=== PATIENT | male | born 1965 | race Caucasian/White ===

== ENCOUNTER 2023-09-20 00:37 | Emergency (ER) | payer OTHER, SELFPAY ==
[2023-09-20 00:50] VITALS: BP 151/87; PULSE 78; RESP 18; TEMP 36.8; O2SAT 98; BMI 33.3
--- NOTE | 2023-09-20 01:14 | ED_ITS ---
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 Injured his left hip and thigh. Denies rib or back pain. no abdominal pain. believes he may have hit his head on something but does not have a headache or pain. did sustain minor scrape right elbow but has FROM of the elbow without pain. No nausea or vomiting . States he is able to walk but not very far because of the pain of the left hip MD complaint: Reports fall Related Data Allergies Allergy/AdvReac Type Severity Reaction Status Date / Time clopidogrel [From Plavix] Allergy Mild Verified 09/20/23 00:54 Review of Systems ROS Status of ROS 10 or more systems reviewed and unremark able except as noted in history and below PFSH PFSH Social History Smoking status: Current every day smoker Exam Constitutional Vital Signs, click to edit/add: Last Vital Signs Temp 98.2 F 09/20/23 00:50 Pulse 78 09/20/23 00:50 Resp 18 09/20/23 00:50 BP 151/87 H 09/20/23 00:50 Pulse Ox 98 09/20/23 00:50 O2 Del Method Room Air 09/20/23 00:50 Common normals: no apparent distress, average body habitus, oriented x3, no limitations, healthy appearing, alert and well nourished Eye Common normals: PERRL and EOMs intact bilaterally Neck & C-Spine Common normals: full ROM and supple Chest Common normals: inspection of chest normal and palpation of chest normal Respiratory Common normals: normal respiratory effort, no retractions, no use of accessory muscles and clear to auscultation bilaterally Cardio Common normals: regular rate, regular rhythm, S1 normal heart sound and S2 normal heart sound GI Common normals: Normal to inspection, nondistended, normoactive bowel sounds present, soft to palpation and non-tender Extremity Other: tenderness left hip and thigh Neuro Common normals: oriented x3, CN's II-XII intact bilaterally, moves all extremities and no focal motor deficits Psych Appearance: grossly normal Course Vital Signs Vital signs: Vital Signs Temperature 98.2 F 09/20/23 00:50 Pulse Rate 78 09/20/23 00:50 Respiratory Rate 18 09/20/23 00:50 Blood Pressure 151/87 H 09/20/23 00:50 Pulse Oximetry 98 09/20/23 00:50 Oxygen Delivery Method Room Air 09/20/23 00:50 Temperature 98.2 F 09/20/23 00:50 Pulse Rate 78 09/20/23 00:50 Respiratory Rate 18 09/20/23 00:50 Blood Pressure 151/87 H 09/20/23 00:50 Pulse Oximetry 98 09/20/23 00:50 Oxygen Delivery Method Room Air 09/20/23 00:50 MDM - Fall MDM Narrative Medical decision making narrative: patient presents after a fall from work. states he fell about 4 ft to the ground while climbing down from the ladder of a train. Minor injury right elbow. Main complaint of pain left hip and femur. exam with tenderness but no deformity. xrays neg. patient informed of the above and discharged home Imaging Data Abdominal x-ray: Radiologist's impression: re: XR hip RT 2V w/ pelvis PROCEDURE: XR hip RT 2V w/ pelvis HISTORY: fall COMPARISON: None. FINDINGS: BONES:No fracture, acute abnormality, or significant arthropathy. SOFT TISSUES:No visible soft tissue swelling. EFFUSION:None visible. OTHER: Negative. XR/XR hip RT 2V w/ pelvis IMPRESSION: 1. No acute bone abnormality. Discharge Plan Discharge Chief Complaint: Fall Clinical Impression: Pain of left femur, Contusion of hip, left Patient Disposition: Home, Self-Care Instructions: Contusion in Adults (ED), Hip Contusion (ED) Additional Instructions: follow up with [facility] thursday Stand Alone Forms: Portal Instructions Referrals: QUE BALDWIN [Primary Care Provider] - 1 week Discharge Date/Time: 09/20/23 02:54
--- NOTE | 2023-09-20 01:19 | XR_ITS ---
The [address] [address] Patient Name: JOHN GILLESPIE MRN: [id number] date: 1965 Sex: M Assigned Patient Location: ER Current Patient Location: ER Accession/Order Number: [id number] Exam Date: 09/20/2023 01:35 Report Date: 09/20/2023 01:54 At the request of: CEASAR MARSHALL Procedure: XR femur LT 2V PROCEDURE: XR femur LT 2V HISTORY: fall COMPARISON: None. FINDINGS: BONES:No fracture, acute abnormality, or significant arthropathy. SOFT TISSUES:No visible soft tissue swelling. EFFUSION:None visible. OTHER: Negative. XR/XR femur LT 2V IMPRESSION: 1. No acute bone abnormality. Electronically authenticated by: KARLA SAMS Date: 09/20/2023 01:54
--- NOTE | 2023-09-20 01:19 | XR_ITS ---
The [address] [address] Patient Name: JOHN GILLESPIE MRN: [id number] date: 1965 Sex: M Assigned Patient Location: ER Current Patient Location: ER Accession/Order Number: [id number] Exam Date: 09/20/2023 01:35 Report Date: 09/20/2023 01:55 At the request of: CEASAR MARSHALL Procedure: XR hip RT 2V w/ pelvis PROCEDURE: XR hip RT 2V w/ pelvis HISTORY: fall COMPARISON: None. FINDINGS: BONES:No fracture, acute abnormality, or significant arthropathy. SOFT TISSUES:No visible soft tissue swelling. EFFUSION:None visible. OTHER: Negative. XR/XR hip RT 2V w/ pelvis IMPRESSION: 1. No acute bone abnormality. Electronically authenticated by: KARLA SAMS Date: 09/20/2023 01:55
[2023-09-20] MEDS: HYDROCODONE/ACET 5-325 MG TABLET 4 TAB PO (02:35)
== END 2023-09-20 02:54 | disposition home or self-care (01) ==
PROVIDERS: Emergency Provider Internal Medicine; PCP Family Medicine
DX: S70.02XA Contusion of left hip, initial encounter (principal); M79.605 Pain in left leg; W11.XXXA Fall on and from ladder, initial encounter
CPT/HCPCS: 73502; 73552; 99284

== ENCOUNTER 2023-12-02 16:06 | Emergency (ER) | payer OTHER, SELFPAY ==
[2023-12-02] VITALS (43 sets, daily range): BP systolic 95–160; BP diastolic 69–104; PULSE 63–83; RESP 8–25; O2SAT 95–97; BMI 32.5
--- NOTE | 2023-12-02 16:17 | CT_ITS ---
The [address] [address] Patient Name: JOHN GILLESPIE MRN: [id number] date: 1965 Sex: M Assigned Patient Location: ER Current Patient Location: ER Accession/Order Number: [id number] Exam Date: 12/02/2023 16:22 Report Date: 12/02/2023 16:51 At the request of: SISSY SEALS Procedure: CT stroke head/brain wo con EXAM: CT stroke head/brain wo con HISTORY: Left-sided weakness, possible cva COMPARISON: None. TECHNIQUE: Unenhanced transaxial tomographic sections obtained from the vertex through the posterior fossa. FINDINGS: Diffuse cerebral atrophy. Mild bilateral chronic microvascular ischemic change. No midline shift, mass effect or intracranial hemorrhage are identified. The mastoid air cells and visualized paranasal sinuses are clear. CT/CT stroke head/brain wo con IMPRESSION: 1. No acute intracranial process is identified. 2. Diffuse cerebral atrophy. Mild bilateral chronic microvascular ischemic change. Electronically authenticated by: JOAQUIN VILLAVICENCIO Date: 12/02/2023 16:51
[2023-12-02 16:19] LABS: Glucometer 143 mg/dL (74-106)
--- NOTE | 2023-12-02 16:25 | ECG_ITS ---
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
--- NOTE | 2023-12-02 16:31 | XR_ITS ---
The [address] [address] Patient Name: JOHN GILLESPIE MRN: [id number] date: 1965 Sex: M Assigned Patient Location: ER Current Patient Location: ER Accession/Order Number: [id number] Exam Date: 12/02/2023 16:25 Report Date: 12/02/2023 17:10 At the request of: SISSY SEALS Procedure: XR chest 1V EXAM: XR chest 1V at 1648 hours HISTORY: cva COMPARISON: 04/25/2020 TECHNIQUE: AP upright portable chest x-ray FINDINGS: There has been interval clearing of the left lung base. No acute infiltrate, effusion or pneumothorax is identified. The heart is not enlarged and the vasculature is not distended. The osseous structures are grossly intact. XR/XR chest 1V IMPRESSION: The left lung base is now clear. There is no evidence of a focal infiltrate or cardiac decompensation at this time. Electronically authenticated by: EDD GELLER Date: 12/02/2023 17:10
--- NOTE | 2023-12-02 16:32 | ED_ITS ---
HPI - Neuro Symptoms/Deficit General Chief Complaint: Neuro Symptoms/Deficit Stated Complaint: Possible CVA Time Seen by Provider: 12/02/23 16:14 Source: patient and family Limitations: physical limitation History of Present Illness HPI Narrative: 58-year-old male presents to the emergency department for weakness in his left arm and numbness on the left side of his face which started at 9:00 this morning, over 7 hours ago. It has been continuous. He does not complain of a headache. He does not have any symptoms in his right arm or his legs. He had a stroke years ago which affected his balance. No fever vomiting or chest pain. Related Data Home Medications Medication Instructions Recorded Confirmed blood sugar diagnostic (OneTouch 12/02/23 12/02/23 Verio test strips) fluoxetine 20 mg capsule 20 mg PO Q24H 12/02/23 12/02/23 metformin 500 mg tablet,extended 500 mg PO Q8H 12/02/23 12/02/23 release 24 hr Allergies Allergy/AdvReac Type Severity Reaction Status Date / Time clopidogrel [From Plavix] Allergy Mild Verified 09/20/23 00:54 Review of Systems ROS Narrative A ten point review of systems is negative except as noted above. PFSH PFSH Social History Smoking status: Current every day smoker Exam Narrative Exam Narrative: Nurses note and vital signs reviewed and patient is not hypoxic. General: The patient appears well and in no apparent distress. Patient is resting comfortably on cart. Skin: Warm, dry, no pallor noted. There is no rash noted. Head: Normocephalic, atraumatic Eye: Normal conjunctiva, no drainage, EOMI. PERRL Ears, Nose, Mouth, and Throat: oral mucosa is moist. Nares patent. Cardiovascular: Regular Rate and Rhythm Respiratory: Patient is in no distress, no accessory muscle use, lungs are clear to auscultation, no wheezing, rales or rhonchi Back: non-tender, no CVA tenderness bilaterally to percussion. GI: Normal bowel sounds, no tenderness to palpation, no masses appreciated. No rebound, guarding, or rigidity noted. Musculoskeletal: The patient has no evidence of calf tenderness, no pitting edema, symmetrical pulses noted bilaterally Neurological: A&O x4, normal speech; lower extremity strength is 5 out of 5 and symmetric. Cranial nerves II through XII are intact except for subjective facial numbness, mild, on the left side only. All muscle groups have decreased strength in the left arm. He is able to hold the arm out in front of them and hold it there against gravity. Biceps and tricep strength is diminished as his hand grasp. Psychiatric: Cooperative NIH score is 3. He gets 1 point for ataxia in 1 limb, 1 point for mild sensation loss, and 1 point for left arm drift Constitutional Vital Signs, click to edit/add: Last Vital Signs Pulse 70 12/02/23 18:10 Resp 12 12/02/23 18:10 BP 131/96 H 12/02/23 18:30 Pulse Ox 96 12/02/23 18:10 O2 Del Method Room Air 12/02/23 16:16 Course Vital Signs Vital signs: Vital Signs Pulse Rate 75 12/02/23 16:16 Respiratory Rate 16 12/02/23 16:16 Blood Pressure 95/69 12/02/23 16:16 Pulse Oximetry 96 12/02/23 16:16 Oxygen Delivery Method Room Air 12/02/23 16:16 Pulse Rate 70 12/02/23 18:10 Respiratory Rate 12 12/02/23 18:10 Blood Pressure 131/96 H 12/02/23 18:30 Pulse Oximetry 96 12/02/23 18:10 Oxygen Delivery Method Room Air 12/02/23 16:16 MDM - Neuro Symptoms/Deficit MDM Narrative Medical decision making narrative: CT brain is negative. CTA is pending and the patient is signed out to Dr. Naranjo at change of shift. The patient is well outside the window for treatment with thrombolytics. Differential Diagnosis Differential diagnosis: Likely other (CVA) Lab Data Attestation: I reviewed the patient's lab results. Labs: Lab Results 12/02/23 12/02/23 Range/Units 16:18 16:39 WBC 12.5 H (4.0-11.0) 10^3/uL RBC 5.22 (4.70-6.10) 10^6/uL Hgb 15.0 (14.0-18.0) g/dL Hct 45.4 (42.0-54.0) % MCV 87.0 (80.0-94.0) fL MCH 28.7 (25.9-34.0) pg MCHC 33.0 (29.9-35.2) g/dL RDW 12.3 (11.0-15.0) % Plt Count 270 (150-450) 10^3/uL MPV 9.4 L (9.5-13.5) fL Neut % (Auto) 60.8 (43.0-75.0) % Lymph % (Auto) 28.5 (20.5-60.0) % [place] % (Auto) 6.5 (1.7-12.0) % Eos % (Auto) 2.9 (0.9-7.0) % Baso % (Auto) 0.9 (0.2-2.0) % Neut # (Auto) 7.6 H (1.4-6.5) 10^3/uL Lymph # (Auto) 3.6 (1.2-3.8) 10^3/uL [place] # (Auto) 0.8 (0.3-0.8) 10^3/uL Eos # (Auto) 0.4 (0.0-0.7) 10^3/uL Baso # (Auto) 0.1 (0.0-0.1) 10^3/uL Abs Immat Gran (auto) 0.05 H (0.00-0.03) 10^3/uL Imm/Tot Granulo (auto) 0.4 (0.0-0.5) % PT 10.0 (9.0-11.6) sec INR 0.94 APTT 27.9 (22.3-36.2) sec Sodium 138 (136-145) mmol/L Potassium 4.2 (3.5-5.1) mmol/L Chloride 104 (98-107) mmol/L Carbon Dioxide 23.9 (21.0-32.0) mmol/L Anion Gap 14.3 BUN 23.0 H (7.0-18.0) mg/dL Creatinine 0.86 (0.70-1.30) mg/dL Est GFR ( Amer) >60 (>=60) Est GFR (Non-Af Amer) >60 (>=60) BUN/Creatinine Ratio 26.7 Glucose 133 H (74-106) mg/dL Calcium 8.8 (8.5-10.1) mg/dL POC Glucose 143 H (74-106) mg/dL Imaging Data CT scan - head: Radiologist's impression: ITS Impressions Brain CT 12/02/23 16:17 IMPRESSION: 1. No acute intracranial process is identified. 2. Diffuse cerebral atrophy. Mild bilateral chronic microvascular ischemic change. Electronically authenticated by: JOAQUIN VILLAVICENCIO Date: 12/02/2023 16:51 Chest X-Ray 12/02/23 16:31 IMPRESSION: The left lung base is now clear. There is no evidence of a focal infiltrate or cardiac decompensation at this time. Electronically authenticated by: EDD GELLER Date: 12/02/2023 17:10 ECG Data Attestation: I personally reviewed and interpreted this ECG as follows: (EKG on my interpretation shows normal sinus rhythm with no acute change and a rate of 68.) Discharge Plan Discharge Patient Disposition: Still a Patient
[2023-12-02 16:49] LABS: Basophils Absolute Auto 0.1 10^3/uL (0.0-0.1); Basophils Percent Auto 0.9 % (0.2-2.0); Eosinophils Absolute Auto 0.4 10^3/uL (0.0-0.7); Eosinophils Percent Auto 2.9 % (0.9-7.0); Hematocrit 45.4 % (42.0-54.0); Immature Granulocytes Abs Auto 0.05 10^3/uL (0.00-0.03); Immature Granulocytes Pct Auto 0.4 % (0.0-0.5); Lymphocytes Absolute Auto 3.6 10^3/uL (1.2-3.8); Lymphocytes Percent Auto 28.5 % (20.5-60.0); Mean Corpuscular Hemoglobin 28.7 pg (25.9-34.0); Mean Platelet Volume 9.4 fL (9.5-13.5); Monocytes Absolute Auto 0.8 10^3/uL (0.3-0.8); Monocytes Percent Auto 6.5 % (1.7-12.0); Neutrophils Absolute Auto 7.6 10^3/uL (1.4-6.5); Neutrophils Percent Auto 60.8 % (43.0-75.0); Platelet Count 270 10^3/uL (150-450); Red Blood Count 5.22 10^6/uL (4.70-6.10); Red Cell Distribution Width 12.3 % (11.0-15.0); White Blood Count 12.5 10^3/uL (4.0-11.0)
[2023-12-02 16:59] LABS: Anion Gap 14.3; BUN Creatinine Ratio 26.7; Calcium 8.8 mg/dL (8.5-10.1); Carbon Dioxide 23.9 mmol/L (21.0-32.0); Chloride 104 mmol/L (98-107); Estimated GFR (African America >60 (>=60); Estimated GFR (Non-African Ame >60 (>=60); Glucose 133 mg/dL (74-106); Potassium 4.2 mmol/L (3.5-5.1); Sodium 138 mmol/L (136-145)
--- NOTE | 2023-12-02 17:09 | CT_ITS ---
[address] [address] Patient Name: JOHN GILLESPIE MRN: [id number] date: 1965 Sex: M Assigned Patient Location: ER Current Patient Location: .[facility] Accession/Order Number: [id number] Exam Date: 12/02/2023 17:25 Report Date: 12/02/2023 19:43 At the request of: SISSY SEALS Procedure: CT angio neck EXAM: CT angio neck HISTORY: Strokelike symptoms, left arm weakness COMPARISON: None TECHNIQUE: Axial images were obtained from the aortic arch through skull base following the intravenous administration of contrast. Sagittal, coronal and 3-dimensional volume rendered reformations were provided. All carotid stenoses were measured utilizing NASCET criteria. Dose reduction techniques were achieved by using automated exposure control and/or adjustment of mA and/or kV according to patient size and/or use of iterative reconstruction technique FINDINGS: No flow limiting stenosis at the origin of the great vessels. There is plaque and calcification which results in at least moderate segmental narrowing of the left subclavian artery just proximal to the vertebral artery origin. The right subclavian and both axillary arteries are patent and not significantly narrowed. Atherosclerotic changes also seen in the region of the carotid bifurcations. There is occlusion of the right cervical vertebral artery near its mid portion. Beyond this point, the right cervical vertebral arteries is unopacified with intravascular contrast throughout the remainder of its course within the neck. There is tortuosity of the distal left cervical internal carotid artery. However, the left cervical carotid artery is patent and not significantly stenotic. The right vertebral artery is dominant with the left vertebral artery smaller in caliber. There is moderate segmental narrowing of the nondominant left vertebral artery in the region of the C5 transverse foramen. The vertebral arteries are otherwise patent and unremarkable throughout their course within the neck. CT/CT angio neck IMPRESSION: 1. Atherosclerotic change involving the neck. 2. 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 3. There is at least moderate segmental narrowing of the left subclavian artery just proximal to the vertebral artery origin. Duplex ultrasound of the neck could be performed to assess the significance of this stenosis by evaluating the spectral waveform and directionality of flow within the left vertebral artery. 4. Moderate segmental stenosis involving the V2 segment of the nondominant left vertebral artery in the region of the C5 transverse foramen. Electronically authenticated by: ADDIS BARRETT Date: 12/02/2023 19:43
--- NOTE | 2023-12-02 17:09 | CT_ITS ---
The [address] [address] Patient Name: JOHN GILLESPIE MRN: [id number] date: 1965 Sex: M Assigned Patient Location: ER Current Patient Location: ER Accession/Order Number: [id number] Exam Date: 12/02/2023 17:25 Report Date: 12/02/2023 19:49 At the request of: SISSY SEALS Procedure: CT angio head EXAM: CT angio head HISTORY: Strokelike symptoms, left arm weakness COMPARISON: None. TECHNIQUE: Axial images were obtained from the aortic arch through ute of [place] following the intravenous administration of contrast. Sagittal, coronal and 3-dimensional volume rendered reformations were provided. FINDINGS: Proximal to the ophthalmic artery origin, the right internal carotid artery is occluded and unopacified with intravascular contrast material. No other region to suggest a large vessel occlusion or flow-limiting intracranial arterial stenosis is seen. There is no evidence of an intracranial aneurysm. The dural sinuses are opacified with intravascular contrast material. CT/CT angio head IMPRESSION: 1. The right internal carotid artery is occluded proximal to the ophthalmic artery origin. 2. No other region to suggest an intracranial large vessel occlusion is seen. Electronically authenticated by: ADDIS BARRETT Date: 12/02/2023 19:49
[2023-12-02 17:11] LABS: INR 0.94; Partial Thromboplastin Time 27.9 sec (22.3-36.2)
--- NOTE | 2023-12-02 19:38 | PC.NURSE ---
Patient up to side of bed to use urinal. He is still having significant left sided weakness, needing help getting in and out of bed. Speech is clear, no facial drooping noted at this time. Patient is complaining of headache 6/10 at this time, Dr. Naranjo notified.
[2023-12-02] MEDS: ACETAMINOPHEN 500 MG TABLET 1000 MG PO (21:04)
[2023-12-02] MEDS: HEPARIN SODIUM,PORCINE/D5W 25,000 UNIT/500 ML IV.SOLN 19.752 UNIT IV (22:56)
[2023-12-03] VITALS: PULSE 84; RESP 21
[2023-12-03 00:02] VITALS: BP 120/79; PULSE 84; RESP 15
[2023-12-03 00:11] VITALS: PULSE 77; RESP 24
--- NOTE | 2023-12-03 00:19 | PC.NURSE ---
Patient's attempted to move him to a side chair on his own, patient's weakness is getting worse, there is now some left sided facial drooping noted. Patient and are educated on importance of not trying to get in or out of bed without nursing assistance. Patient is asking to go home, is telling him he cannot go home, this RN has told him he can not go home, he needs to be transferred to [place] for the higher level of care.
[2023-12-03 00:20] VITALS: PULSE 80; RESP 15
[2023-12-03] MEDS: 0.9 % SODIUM CHLORIDE 500 ML IV (01:13)
== END 2023-12-03 01:00 | disposition short-term general hospital (02) ==
PROVIDERS: Emergency Medicine; Emergency Provider Internal Medicine; PCP Family Medicine
DX: I63.231 Cerebral infarction due to unspecified occlusion or stenosis of right carotid arteries (principal); R29.810 Facial weakness; G81.94 Hemiplegia, unspecified affecting left nondominant side; Z86.73 Personal history of transient ischemic attack (TIA), and cerebral infarction without residual deficits; Z79.84 Long term (current) use of oral hypoglycemic drugs; F17.200 Nicotine dependence, unspecified, uncomplicated
CPT/HCPCS: 36415; 70450; 70496; 70498; 71045; 80048; 85025; 85610; 85730; 93005; 96374; 99285; J1644; Q9967

== ENCOUNTER 2023-12-21 08:36 | Outpatient (RCR) | payer OTHER, SELFPAY | END 2024-03-23 10:33 | disposition home or self-care (01) | LOC: PT 08:36 | PROVIDERS: PCP Family Medicine | DX: I63.9 Cerebral infarction, unspecified (principal); R26.89 Other abnormalities of gait and mobility; R26.9 Unspecified abnormalities of gait and mobility | CPT/HCPCS: 97110; 97112; 97161; 97530 ==

== ENCOUNTER 2023-12-29 07:10 | Outpatient (RCR) | payer OTHER, SELFPAY | END 2024-03-26 16:33 | disposition home or self-care (01) | LOC: OT 07:10 | PROVIDERS: PCP Family Medicine | DX: I63.9 Cerebral infarction, unspecified (principal) | CPT/HCPCS: 97165; 97530 ==

== ENCOUNTER 2024-02-09 10:26 | Outpatient (OUT) | payer OTHER, SELFPAY ==
--- NOTE | 2024-02-09 10:33 | VEIN_ITS ---
Patient Name: JOHN GILLESPIE MR#: [id number] : 1965 Exam Date: 02/09/2024 Ordering Doctor: TREVOR MONAHAN M.D. RADIOLOGY REPORT PROCEDURE: VC EXT VENOUS REFLUX JEF LMTD COMPARISON: None. INDICATIONS: Pain due to varicose veins of bilateral legs I83.813 TECHNIQUE: Duplex imaging of the lower extremity to assess the deep and superficial venous system for the presence of deep or superficial venous incompetence and to document the location and severity of disease. The study includes evaluation of the great saphenous vein (GSV), anterior accessory saphenous vein (AASV) and small saphenous vein (SSV). Patient scanned in reverse Trendelenburg and standing. FINDINGS: RIGHT LOWER EXTREMITY: Saphenofemoral Junction Reflux: No 5.9mm sec GSV: Diam (mm) Reflux/ Time (sec) Proximal Thigh 2.7 No Mid Thigh 3.0 No Distal Thigh 3.3 No Prox Calf 3.1 Yes 0.6 Mid Calf 2.4 No Saphenopopliteal Junction Reflux: 2.1mm No SSV: Proximal Calf 2.4 No Mid Calf 3.6 Yes 0.6 AASV: Not present Thrombi: No acute or chronic thrombus visualized Compressibility: Normal Flow: Normal Preforator: Dist/med calf 1.2mm with 0s reflux. Tech Note: Patent varicose vein 2.5mm with 1.0s reflux. Patent varicose vein dist/ant calf 2.6mm with 0.8s reflux. LEFT LOWER EXTREMITY: Saphenofemoral Junction Reflux: Yes 9.7 mm 1.1 sec GSV: Diam (mm) Reflux/Time (sec) Proximal Thigh 5.8 Yes 0.9 Mid Thigh 2.8 Yes 1.2 Distal Thigh 2.8 No Prox Calf 3.1 No Mid Calf Saphenopopliteal Junction Relux: 6.1 mm Yes 1.0 SSV: Proximal Calf 5.7 Yes 1.6 Mid Calf 3.4 Yes 0.9 AASV: Proximal Thigh 4.3 No Mid Thigh 2.2 No Distal Thigh Thrombi: No acute or chronic thrombus Compressibility: Normal Flow: Normal Optometry Assistant: No perforartors visualized. Tech Note: Incompetent GSV and SSV. Patent varicose vein mid/med calf 3.1mm with 0.6s reflux. Patent varicose vein prox/med calf 3.3mm with 0.7s reflux. CONCLUSION: 1. Minimal reflux identified in the right great and small saphenous veins with no dilatation 2. Mild reflux identified in the left great saphenous vein with associated saphenofemoral junction reflux 3. Mild left small saphenous vein venous insufficiency with saphenopopliteal junction reflux 4. Incompetent left leg varicose veins Dictated by: Ousmane Powers MD on 02/09/2024 at 13:53 Approved by: Ousmane Powers MD on 02/09/2024 at 13:55
--- NOTE | 2024-02-09 14:57 | VEIN_ITS ---
The [place] [address] Patient Name: JOHN GILLESPIE MRN: [id number] date: 1965 Sex: M Assigned Patient Location: Current Patient Location: Accession/Order Number: [id number] Exam Date: 02/09/2024 14:58 Report Date: 02/11/2024 15:43 At the request of: TRVEOR MONAHAN Procedure: VC SEGMENTAL PRESSURES EXAMINATION: BILATERAL LOWER EXTREMITY ARTERIAL SEGMENTAL PRESSURES, Indication: Claudication COMPARISON: Venous reflux study 02/09/2024 FINDINGS: Segmental pressures presented as follows (right, left) in mmHg. Brachial: 141, 118. Upper thigh: 105/117. Lower thigh: 96/103. Calf: 84/100. DPA: 85/97. PERIPATOLOGIST: 91/95. 1st Toe: 91/115 BELINDA: 0.65, 0.69. The ABIs are abnormal indicating moderate arterial disease PVR waveforms: Right leg: Thigh: normal Above knee: mild peripheral arterial disease Below knee: moderate peripheral arterial disease Right ankle: severe peripheral artery disease Left leg: Thigh: normal Above knee: mild peripheral arterial disease Below knee: moderate peripheral arterial disease Right ankle: severe peripheral artery disease VEIN/VC SEGMENTAL PRESSURES IMPRESSION: Abnormal exam demonstrating significant arterial disease. Electronically authenticated by: JUSTIN BELTRAN Date: 02/11/2024 15:43
== END 2024-02-09 10:27 | disposition home or self-care (01) ==
LOC: VC 10:26
PROVIDERS: PCP Family Medicine; Visit Provider Student in an Organized Health Care Education/Training Program
DX: I83.813 Varicose veins of bilateral lower extremities with pain (principal); I73.9 Peripheral vascular disease, unspecified
CPT/HCPCS: 93923; 93970

== ENCOUNTER 2024-03-03 08:28 | Outpatient (OUT) | payer OTHER, SELFPAY ==
--- NOTE | 2024-03-03 | ECG_ITS ---
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
--- OUTSIDE RECORDS SUMMARY | 2024-03-03 08:38 | XMS_ITS | CCD ---
Author Organization [facility] ion Partnership [facility] Care Team Providers Care Medical Lab Technician Name Role Phone NICOLASA, DR GREY Admitting Unavailable PETZNICK, DR GREY Attending Unavailable PETZNICK, DR GREY Primary Care Unavailable PETZNICK, DR GREY Consulting Unavailable DO Milagros Baldwin Primary Care Provider DO Fito Matta Jr Attending Provider [phone] Dulce Maria Navarro Unavailable Fito Matta Jr Attending Unavailable Fito Matta Jr Admitting Unavailable Milagros Baldwin Primary Care Unavailable Milagros Baldwin DO Primary Care Provider [phone] MILGAROS BALDWIN Attending Unavailable MILAGROS BALDWIN Referring Unavailable MILAGROS BALDWIN Attending Unavailable MILAGROS BALDWIN Referring Unavailable Allergies Allergy Classification Reported Allergen(s) Allergy Type Date of Onset Reaction(s) Facility (1 source) clopidogrel Drug Allergy 12-19-2015 [facility] Repository (4 sources) cl[facility]rel Drug All[facility] Work Phone: (1 source) clopidogrel Drug Allergy 11-09-2023 [facility] Repository Medications Current Medications Medication Drug Class(es) Dates Sig (Normalized) Sig (Original) aspirin 81 mg chewable tablet (3 sources) Platelet Aggregation Inhibitor, Nonsteroidal Anti-inflammatory Drug Start: 12-13-2023 aspirin 81 mg chewable tablet Chew 1 tablet (81 mg total) and swallow in the morning. 30 tablet 2 12/13/2023 Active atorvastatin 20 mg oral tablet (4 sources) HMG-CoA Reductase Inhibitor Start: 12-12-2023 End: 03-11-2024 take 1 tablet by mouth once daily atorvastatin (LIPITOR) 20 mg tablet Take 1 tablet (20 mg total) by mouth nightly for 90 days. 30 tablet 2 12/12/2023 03/11/2024 Active Atorvastatin Arley cium Active Compression stockings, 20-30mmHg, calf 20-30mmHg (1 source) Start: 11-09-2023 Compression stockings, 20-30mmHg, calf 20-30mmHg externally daily as directed for 3 days Oct, Active FLUoxetine 20 mg oral capsule (4 sources) Serotonin Reuptake Inhibitor Start: 10-26-2023 End: 01-24-2024 take 1 capsule by mouth in the morning FLUoxetine (PROzac) 20 mg capsule Take 1 capsule (20 mg total) by mouth in the morning. 0 10/26/2023 01/24/2024 Active 24 hr metFORMIN hydrochloride 500 mg extended release oral tablet (4 sources) Biguanide Start: 07-21-2023 End: 07-20-2024 take 2 tablets by mouth every twenty-four hours in the morning, then take 2 tablets by mouth at bedtime metFORMIN XR (GLUCOPHAGE XR) 500 mg 24 hr tablet Take 2 tablets (1,000 mg total) by mouth in the morning and 2 tablets (1,000 mg total) before bedtime. 0 07/21/2023 07/20/2024 Active metFORMIN HCl Ac tive ozempic (0.25 or 0.5 mg/dose ) 2 mg/3ml solution pen-injector (1 source) Ozempic (0.25 or 0.5 MG/DOSE) 2 MG/3ML INJECT 0.5MG UNDER THE SKIN EVERY 7 DAYS Subcutaneous for 90 Days Active 0.25 mg, 0.5 mg dose 1.5 ml semaglutide 1.34 mg/ml pen injector (3 sources) semaglutide (OZE MPIC) 0.25 mg or 0.5 mg(2 mg/1.5 mL) pen injector Inject 0.25 mg under the skin Once a week. Mondays 0 Active Problems Active Problems Problem Classification Problem Date Documented Da te Episodic/Chronic Occlusion or stenosis of precerebral arteries (3 sources) Right carotid artery occlusion; Translations: [Occlusion and stenosis of right carotid artery] Onset: 12-03-2023 12-03-2023 Chronic Unclassified (1 source) Contusion of left hip, initial encounter; Translations: [Contusion of left hip, initial encounter] Onset: 09-22-2023 Varicose veins of lower extremity (2 sources) Varicose veins of lower extremity; Translations: [Varicose veins of bilateral lower extremities with other complications] Episodic Past or Other Problems Problem Classification Problem Date Documented Da te Episodic/Chronic Mood disorders (3 sources) Mood disorders Onset: 12-03-2023 12-03-2023 Results Test Name Value Interpretation Reference Range Facility CBC AUTO DIFFon 01-19-2023 BASO # 0.1 103/ul Normal 0.0-0.1 [facility] Comment on above: Performed By: #### C BC #### [facility] [address] [place] [address] Dr. Ramirez Nevarez Basophils/100 WBC (Bld) 0.7 % Normal 0.2-2.0 [facility] Comment on above: Performed By: #### C BC #### [facility] [address] [place] [address] Dr. Ramirez Nevarez EO # 0.3 103/ul Normal 0.0-0.7 [facility] Comment on above: Performed By: #### C BC #### [facility] [address] [place] [address] Dr. Ramirez Nevarez Eosinophils/100 WBC (Bld) 2.1 % Normal 0.9-7.0 [facility] Comment on above: Performed By: #### C BC #### [facility] [address] [place] [address] Dr. Ramirez Nevarez Erythrocyte distribution width (RBC) [Ratio] 12.7 % Normal 11.0-15.0 [facility] Comment on above: Performed By: #### C BC #### [facility] [address] [place] [address] Dr. Ramirez Nevarez Hematocrit (Bld) [Volume fraction] 44.3 % Normal 42.0-54.0 [facility] Comment on above: Performed By: #### C BC #### [facility] [address] [place] [address] Dr. Ramirez Nevarez Hemoglobin (Bld) [Mass/Vol] 14.8 g/dL Normal 14.0-18.0 [facility] Comment on above: Performed By: #### C BC #### [facility] [address] [place] [address] Dr. Ramirez Nevarez IG # 0.06 10e3/ul Critically high 0.00-0.03 [facility] Comment on above: Performed By: #### C BC #### [facility] [address] [place] [address] Dr. Ramirez Nevarez IG % 0.4 % Normal 0.0-0.5 [facility] Comment on above: Performed By: #### C BC #### [facility] [address] [place] [address] Dr. Ramirez Nevarez LYMPH # 2.8 103/ul Normal 1.2-3.8 [facility] Comment on above: Performed By: #### C BC #### [facility] [address] [place] [address] Dr. Ramirez Nevarez Lymphocytes/100 WBC (Bld) 21.0 % Normal 20.5-60.0 [facility] Comment on above: Performed By: #### C BC #### [facility] [address] [place] [address] Dr. Ramirez Nevarez MANUAL DIFF REQ NO Normal [facility] Comment on above: Performed By: #### C BC #### [facility] [address] [place] [address] Dr. Ramirez Nevarez MCH (RBC) [Entitic mass] 28.4 pg Normal 25.9-34.0 [facility] Comment on above: Performed By: #### C BC #### [facility] [address] [place] [address] Dr. Ramirez Nevarez MCHC (RBC) [Mass/Vol] 33.4 g/dL Normal 29.9-35.2 [facility] Comment on above: Performed By: #### C BC #### [facility] [address] [place] [address] Dr. Ramirez Nevarez MCV (RBC) [Entitic vol] 84.9 fL Normal 80.0-94.0 [facility] Comment on above: Performed By: #### C BC #### [facility] [address] [place] [address] Dr. Ramirez Nevarez MONO # 1.0 103/ul Critically high 0.3-0.8 [facility] Comment on above: Performed By: #### C BC #### [facility] [address] [place] [address] Dr. Ramirez Nevarez Monocytes/100 WBC (Bld) 7.5 % Normal 1.7-12.0 [facility] Comment on above: Performed By: #### C BC #### [facility] [address] [place] [address] Dr. Ramirez Nevarez NEUT # 9.3 103/ul Critically high 1.4-6.5 [facility] Comment on above: Performed By: #### C BC #### [facility] [address] [place] [address] Dr. Ramirez Nevarez Neutrophils/100 WBC (Bld) 68.3 % Normal 43.0-75.0 [facility] Comment on above: Performed By: #### C BC #### [facility] [address] [place] [address] Dr. Ramirez Nevarez Platelet mean volume (Bld) [Entitic vol] 9.2 fL Critically low 9.5-13.5 [facility] Comment on above: Performed By: #### C BC #### [facility] [address] [place] [address] Dr. Ramirez Nevarez PLT 266 103/ul Normal 150-450 [facility] Comment on above: Performed By: #### C BC #### [facility] [address] [place] [address] Dr. Ramirez Nevarez RBC 5.22 106/ul Normal 4.70-6.10 [facility] Comment on above: Performed By: #### C BC #### [facility] [address] [place] [address] Dr. Ramirez Nevarez WBC 13.6 103/ul Critically high 4.0-11.0 [facility] Comment on above: Performed By: #### C BC #### [facility] [address] [address] [address] Ramirez Nevarez LIPID PROFILEon 01-19-2023 CHOL-HDL RATIO NORM SEE BELOW Normal [facility] Comment on above: Result Comment: 3.3 - 4.4 LOW RISK 4.4 - 7.1 AVERAGE RISK 7.1 - 11.0 MODERATE RISK >11.0 HIGH RISK Performed By: #### C MP, LIPID #### [facility] [address] [address] [address] Ramirez Nevarez Cholesterol [Mass/Vol] 123 mg/dL Normal <=200 [facility] Comment on above: Performed By: #### C MP, LIPID #### [facility] [address] [address] [address] Ramirez Nevarez Cholesterol in HDL [Mass/Vol] 42 mg/dL Normal 40-60 [facility] Comment on above: Performed By: #### C MP, LIPID #### [facility] [address] [address] [address] Ramirez Nevarez Cholesterol in LDL [Mass/Vol] 68.4 mg/dL Normal [facility] Comment on above: Performed By: #### C MP, LIPID #### [facility] [address] [address] [address] Ramirez Nevarez Cholesterol.total/ Cholesterol in HDL [Mass ratio] 2.9 {ratio} Normal [facility] Comment on above: Performed By: #### C MP, LIPID #### [facility] [address] [address] [address] Ramirez Nevarez HDL NORMAL > or = 60 mg/dl - LO W CARDIOVASCULAR RISK <40 mg/dl - HIGH CARDIOVASCULAR RISK Normal [facility] Comment on above: Performed By: #### C MP, LIPID #### [facility] [address] [address] [address] Ramirez Nevarez LDL CALC NORMAL SEE BELOW Normal [facility] Comment on above: Result Comment: <100 mg/dl OPTIMAL 100 - 129 mg/dl NEAR OR ABOVE OPTIMAL 130 - 159 mg/dl BORDERLINE HIGH 160 - 189 mg/dl HIGH >190 mg/dl VERY HIGH Performed By: #### C MP, LIPID #### [facility] [address] [place] [address] Dr. Ramirez Nevarez Triglyceride [Mass/Vol] 63 mg/dL Normal <=150 [facility] Comment on above: Performed By: #### C MP, LIPID #### [facility] [address] [place] [address] Dr. Ramirez Nevarez VLDL CALC 12.6 mg/dL Normal [facility] Comment on above: Performed By: #### C MP, LIPID #### [facility] [address] [place] [address] Dr. Ramirez Nevarez MICROALB CREAT RATIO RANDOMo n 01-19-2023 mALB <1.3 Normal <=30.0 [facility] Comment on above: Performed By: #### M CRR #### [facility] [address] [place] [address] Dr. Ramirez Nevarez MALB CR RATIO RANGE SEE BELOW Normal [facility] Comment on above: Result Comment: NO M ICROALBUMINURIA 0-29 MG/G CLINICAL MICROALBUMINURIA 30-300 MG/G MACROALBUMINURIA >300 MG/G Performed By: #### M CRR #### [facility] [address] [place] [address] Dr. Ramirez Nevarez URINE CREAT 139.97 mg/dL Normal 20.00-300.00 [facility] Comment on above: Performed By: #### M CRR #### [facility] [address] [place] [address] Dr. Ramirez Nevarez PROF 14(COMP METB)on 023 Albumin [Mass/Vol] 3.5 g/dL Normal 3.4-5.0 [facility] Comment on above: Performed By: #### C MP, LIPID #### [facility] [address] [place] [address] Dr. Ramirez Nevarez Albumin/Globulin [Mass ratio] 0.9 {ratio} Normal [facility] Comment on above: Performed By: #### C MP, LIPID #### [facility] [address] [place] [address] Dr. Ramirez Nevarez ALP [Catalytic activity/Vol] 79 U/L Normal 46-116 [facility] Comment on above: Performed By: #### C MP, LIPID #### [facility] [address] [address] [address] Ramirez Nevarez ALT [Catalytic activity/Vol] 25 U/L Normal 16-63 [facility] Comment on above: Performed By: #### C MP, LIPID #### [facility] [address] [address] [address] Ramirez Nevarez Anion gap [Moles/Vol] 12.5 mmol/L Normal [facility] Comment on above: Performed By: #### C MP, LIPID #### [facility] [address] [place] [address] Dr. Ramirez Nevarez AST [Catalytic activity/Vol] 14 U/L Critically low 15-37 [facility] Comment on above: Performed By: #### C MP, LIPID #### [facility] [address] [place] [address] Dr. Ramirez Nevarez Bilirubin [Mass/Vol] 0.4 mg/dL Normal 0.2-1.0 [facility] Comment on above: Performed By: #### C MP, LIPID #### [facility] [address] [place] [address] Dr. Ramirez Nevarez Calcium [Mass/Vol] 9.6 mg/dL Normal 8.5-10.1 [facility] Comment on above: Performed By: #### C MP, LIPID #### [facility] [address] [place] [address] Dr. Ramirez Nevarez Chloride [Moles/Vol] 103 mmol/L Normal 98-107 [facility] Comment on above: Performed By: #### C MP, LIPID #### [facility] [address] [address] [address] Ramirez Nevarez CO2 [Moles/Vol] 27.1 mmol/L Normal 21.0-32.0 [facility] Comment on above: Performed By: #### C MP, LIPID #### [facility] [address] [place] [address] Dr. Ramirez Nevarez Creatinine [Mass/Vol] 0.92 mg/dL Normal 0.70-1.30 [facility] Comment on above: Performed By: #### C MP, LIPID #### [facility] [address] [place] [address] Dr. Ramirez Nevarez EGFR-AF IRISH >60 Normal >=60 [facility] Comment on above: Performed By: #### C MP, LIPID #### [facility] [address] [address] [address] Ramirez Nevarez EGFR-NON AF IRISH >60 Normal >=60 [facility] Comment on above: Performed By: #### C MP, LIPID #### [facility] [address] [place] [address] Dr. Ramirez Nevarez Globulin (S) [Mass/Vol] 3.9 g/dL Normal [facility] Comment on above: Performed By: #### C MP, LIPID #### [facility] [address] [place] [address] Dr. Ramirez Nevarez Glucose [Mass/Vol] 176 mg/dL Critically high 74-106 [facility] Comment on above: Performed By: #### C MP, LIPID #### [facility] [address] [place] [address] Dr. Ramirez Nevarez Potassium [Moles/Vol] 4.6 mmol/L Normal 3.5-5.1 [facility] Comment on above: Performed By: #### C MP, LIPID #### [facility] [address] [place] [address] Dr. Ramirez Nevarez Protein [Mass/Vol] 7.4 g/dL Normal 6.4-8.2 [facility] Comment on above: Performed By: #### C MP, LIPID #### [facility] [address] [place] [address] Dr. Ramirez Nevarez Sodium [Moles/Vol] 138 mmol/L Normal 136-145 [facility] Comment on above: Performed By: #### C MP, LIPID #### [facility] [address] [place] [address] Dr. Ramirez Nevarez Urea nitrogen [Mass/Vol] 19.0 mg/dL Critically high 7.0-18.0 [facility] Comment on above: Performed By: #### C MP, LIPID #### [facility] [address] [place], [place] [address] Dr. Ramirez Nevarez Urea nitrogen/Creatinin e [Mass ratio] 20.7 mg/mg Normal [facility] Comment on above: Performed By: #### C MP, LIPID #### [facility] [address] [place], [place] [address] Dr. Ramirez Nevarez In office Testingon 01-08-20 23 In office Testing [id number] 0CD:127 Normal [facility] US Venous, Unilat, Lower Ext Righton 12-09-2021 US Venous, Unilat, Lower Ext Right CLINICAL HISTORY: Right calf pain COMPARISON: None. TECHNIQUE: The right lower extremity veins were evaluated with color Doppler, grayscale imaging, and spectral analysis while using compression and augmentation when possible. FINDINGS: Evaluation of the right lower extremity veins from the thigh to the calf shows normal phasic flow, normal augmentation of the Doppler signal, and normal compression of the deep veins. There is no sonographic evidence for acute deep venous thrombosis from the right groin to the popliteal region. There is no sonographic evidence for acute deep vein thrombosis in the right calf veins. IMPRESSION: No acute DVT of the right lower extremity veins from the groin to the knee. No acute DVT of the right calf veins. Report reported and signed by Bunny Deshpande on 12/09/2021 1206 Normal [facility] XR Tibia/Fibula Righton 11-13 XR Tibia/Fibula Right CLINICAL HISTORY: Posterior lower leg pain and cramping for 2 months. No recent injury. History of ACL reconstruction. COMPARISON: None. RESULT: No acute fracture involving the right tibia or fibula. Alignment at the knee and ankle appears maintained. Changes from ACL reconstruction at the knee. Well corticated density posteriorly in the popliteal fossa region, possibly joint body within a Bennett's cyst. Tricompartmental degenerative changes at the knee, not well assessed on these radiographs. Vascular calcifications. IMPRESSION: No acute findings. Report reported and signed by Bunny Deshpande on 12/09/2021 1140 Normal [facility] Business Writer CNOVon 11-30-2020 CNOV Office Visit (UROL[facility] ) JOHN GILLESPIE ([id number]) 1965 M Date Time Provider Department 11/30/20 9:15 AM ESTEBAN LAZCANO [facility] During your visit today, we recorded the following information about you: Pulse Blood pressure Weight 82/minute 150/80 95.3 kg Esteban Lazcano MD 11/30/2020 9:45 AM Signed Established Patient Visit 11/30/2020 HPI: 55 year old male returns for follow up for PD. He has moderate ED. Responds to viagra. Smokes 1.5-2 PPD. He has DM, HL. PMHx/PSHx: see above, otherwise unchanged Rx: reviewed and unchanged ROS: see above, otherwise unchanged Labs: None Imaging: None PE: General: Well masculinized, well nourished male Psych: euthymic, NAD Neuro: AANDOx3 Inguinal: No lesions, adenopathy, or hernias Phallus: normal, circumcised, significant plaque dorsally - proximal half of penis Meatus: orthotopic, patent, no discharge Scrotum: no lesions, normal rugae Testes: Descended, nontender, and no masses bilaterally L: 18 ccs R:18 ccs Epididymides: L Palp NT R palp NT Vas deferens: palpable bilaterally Varicocele: None Imp: 55 yo male with 30-40 degree dorsal R curvature, moderate ED responsive to PDE5s P: 1) We discussed options to include observation, traction, xiaflex and plication. All discussed in detail. Several questions answered. Risks and benefits discussed. Risks of surgery discussed. Medical Decision Making: Problems: Moderate: 2+ stable chronic illnesses Risk: Moderate: Decision on elective major surgery w/o risk factors Medical Decision Making Level: 4 - Moderate Esteban Lazcano MD Visit duration 40 minutes with greater than 50% of time [id number] counseling. MD Esteban Cisse MD 11/30/2020 9:30 AM Addendum Penile Plication for Penile Curvature (Peyronie's Disease) How long is the procedure? The operating time for a penile plication is around 45-60 minutes. A general anesthetic usually is used and you will be asleep. You will be discharged the same day to home. We prefer that out-of-town patients stay in the [facility] for at least 1 day after surgery. What is a penile plication? A penile plication uses sutures (stitches) to straighten curve of the penis. During plication surgery, an artificial erection is created. The outer skin of the penis is pulled back with an incision. The penis is straightened, and the excess tissue on what had been the outer side of the curve is cinched together by placing a series of stitches or tucks. The final penile length will depend on the length of the shorter side ? the side with the scarring from Peyronie's disease. The goal of the surgery is to make the penis functionally straight, and afterwards there may still be some slight curve (approximately 10-15 degrees). In other words, the penis may or may not be ?arrow straight? at the end of the procedure. Possible Side Effects Few patients report changes to erectile function or penile sensation. The knots of the stitches may be palpable underneath the skin permanently. About 80% of patients have less than 1.5 cm decrease in stretched penile length while 20% experienced more than 1.5 cm decrease in penile length. Another study reports an average loss of length of 0.36 cm. Typically this is not an issue because patients are more easily able to engage in sexual activity with a straightened penis. Recovery You can resume normal, light activity in 48 hours. Do not do activities that cause discomfort. Avoid strenuous exercise or heavy lifting for at least 14 days. After that, you can do your normal activities. Listen to your body. If an activity causes discomfort, slow down or stop and rest. Avoid all sexual activity, including masturbation, for 6 weeks. Engaging in sexual activity prior to full healing of the surgery could compromise the outcome or cause complications. Xiaflex is the name of the Collagenase Injection Restore-Ex is the Traction device Referring Provider: ESTEBAN LAZCANO [[id number]] Allergies As of Date: 11/30/2020 Noted Allergy Reaction PLAVIX (CLOPIDOGREL) 08/10/2020 9 - Itching Date Reviewed: 11/30/2020 Reviewed by: Esteban Lazcano - Fully Assessed Reason for Visit: Follow Up [171] Primary Visit Diagnosis:Peyronie's disease [N48.6] Prescriptions as of 11/30/2020 Sig: OZEMPIC 0.25 MG OR 0.5 MG (2 * Inject 0.25 mg subcutaneously* LISINOPRIL 5 MG TABLET Take 5 mg by mouth once daily. ATORVASTATIN 80 MG TABLET Take 80 mg by mouth once helio* METFORMIN ORAL Take 500 mg by mouth twice da* FINASTERIDE 5 MG TABLET Take 5 mg by mouth once daily. CYCLOBENZAPRINE 10 MG TABLET Take 10 mg by mouth twice carol* FLUOXETINE 20 MG TABLET Take 20 mg by mouth once helio* SILDENAFIL 100 MG TABLET Take one tablet by mouth 1 ho* ETODOLAC 400 MG TABLET 1 PO BID with food Patient not taking: Swallow whole. DO NOT crush * Problem List As Of Date 11/12 (more content not included)... Normal [facility] Vital Signs Date Time Vital Sign Value Performing Clinician Facility 11-09-2023 10:00-0500 Body height 173.99 cm Dulce Maria Alegriahermann Other [facility] Other 11-09-2023 10:00-0500 Body mass index (BMI) [Ratio] 35.21 kg/m2 Dulce Maria Ramon Other [facility] Other 11-09-2023 10:00-0500 Body temperature 97.8 [degF] Dulce Maria Ramon Other [facility] Other 11-09-2023 10:00-0500 Body weight 106.6 kg Dulce Maria Ramon Other [facility] Other 11-09-2023 10:00-0500 Diastolic blood pressure 62 mm[Hg] Dulce Maria Navarro Other [facility] Other 11-09-2023 10:00-0500 SaO2% (BldA) [Mass fraction] 96 % Dulce Maria Navarro Other [facility] Other 11-09-2023 10:00-0500 Systolic blood pressure 116 mm[Hg] Dulce Maria Navarro Other [facility] Other Encounters Encounter Date Encounter Type Care Provider Facility Start: 01-21-2024 End: 01-21-2024 ambulatory MILAGROS BALDWIN Not Available Start: 12-30-2023 Telephone encounter Melisa Bishop [facility] Comment on above: Letter for School/Wo rk Start: 12-28-2023 Telephone encounter Liya Gonzales [facility] Comment on above: disability paperwork Start: 12-17-2023 End: 12-17-2023 ambulatory MILAGROS BALDWIN Not Available Start: 12-15-2023 Telephone encounter Abena Marcano [facility] Comment on above: fax Start: 11-09-2023 End: 11-09-2023 ambulatory Dulce Maria Navarro Other [facility] Other Start: 11-09-2023 FQ visit new patient Dulce Maria Solorio gaetano [facility] Start: 09-22-2023 End: 09-22-2023 ambulatory DO Milagros Baldwin Work Phone: [facility] Work Phone: Start: 09-22-2023 End: 09-22-2023 Patient encounter procedure DO Milagros Baldwin Work Phone: [facility] [address] Work Phone: Start: 01-25-2023 Encounter for genera l adult medical examination without abnormal findings DR MILAGROS BALDWIN [facility] Start: 01-19-2023 End: 01-20-[address] MILAGROS BALDWIN Facility:[facility] Start: 01-19-2023 End: 01-20-2023 Encounter for general adult medical examination without abnormal findings DR MILAGROS BALDWIN Facility:[facility] Procedures Date Procedure Procedure Detail Performing Clinician Start: 12-03-2023 Adult depression scr eening assessment Abenachema Ricardoon Plan of Treatment Date Care Activity Detail Author Start: 06-01-2025 Tobacco Counseling Tobacco Counseling [facility] Start: 12-11-2024 Adult BMI Screening Adult BMI Screening [facility] Start: 12-05-2024 Tobacco Screening Tobacco Screening [facility] Start: 12-03-2024 Depression Screening Depression Screening [facility] Start: 02-04-2024 End: 02-04-2024 Patient encounter procedure 02/04/2024 10:20 AM EDT Office Visit [facility] [address] [place] [address] Ronald Gooden MD [address], [address] [address] [facility] Start: 01-20-2024 End: 01-20-2024 Patient encounter procedure 01/20/2024 2:30 PM EDT Office Visit [facility] [address] [place] [phone] New Berg MD [address] [place] [id number] [facility] Start: 12-28-2023 End: 12-28-2023 Patient encounter procedure 12/28/2023 11:00 AM EDT Appointment [facility] [address] [place] [address] [facility] Start: 2014 Administration of varicella zoster vaccine Zoster (Shingles) Vaccine (1 of 2) [facility] Start: 1983 DTaP,Tdap and Td Vaccines (1 - Tdap) DTaP,Tdap and Td Vaccines (1 - Tdap) [facility] Start: 1982 Adult BMI Follow Up Plan Adult BMI Follow Up Plan [facility] [facility] Payers Date Payer Category Payer Private Health Insurance ROMEO RODRIGUEZ POS II [id number] 2023-Present [phone] [address] [place] [address] [id number] 2023 Private Health Insurance [id number] 2023 Self-pay [id number] 2023 Unknown [id number] 1 1965 Unknown [id number] 1965 Unknown [id number] 1964 Unknown [id number] 1959 Private Health Insurance [id number] Private Health Insurance [id number] Unknown MMO [id number] Unknown [place] BC/BS [id number] 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 [id number] Social History Date Type Detail Facility Tobacco smoking stat [facility] Unknown if ever smoked [facility] Work Phone: Start: 1965 Sex Assigned At Male [facility] [place] Start: 12-03-2023 End: 12-05-2023 Sex Assigned At [facility] Christen Domee Other Start: 10-12-1983 [facility] Start: 10-12-1983 History of tobacco use Cigarette Smo ker [facility] Start: 12-03-2023 End: 12-05-2023 Cigarettes smoked current (pack per day) - Reported 1 [facility] Start: 12-03-2023 Tobacco use and exposure Smokeless tobacco non-user [facility] [facility] Start: 12-05-2023 Alcohol intake Current drinke r of alcohol (finding) [facility] Has the [employer], or [employer] threatened to shut off services in your home in past 12Mo No [facility] How often to you hav e a drink containing alcohol? 2-3 time sa week [facility] How many standard drinks containing alcohol do you have on a typical day? 1 or 2 [facility] How often do you hav e 6 or more drinks on 1 occasion? Never [facility] Adolescent depressio n screening assessment 0 [facility] Start: 1965 Sex Assigned [facility] Goals Date Patient Goal Desired Activity /State Personal health goal Comment on above: Formatting of this n ote might be different from the original. Evaluation of progress towards goal: SNF Clinical Notes 11-30-2020 to 12-30-2023 Telephone Encounter - Melisa Bishop - 12/30/2023 11:22 AM EDTTelephone Encounter - Jessica Fulton RN - 12/30/2023 11:22 AM EDTTelephone Encounter - Tracie Sexton CMA - 12/30/2023 11:22 AM EDT Note Date & Type Note Facility 12-30-2023 Miscellaneous Notes Formattin g of this note might be different from the original. Patient called and asked for a letter for his work stating that he is currently unable to work. He asked to have the letter mailed to him at [address] [place] [address] If you have any questions for the patient he can be reached at [phone] Letter completed. Please mail to patient. Mailed to the address below. documented in this encounter [facility] 12-30-2023 Telephone encount er Note Patient called and asked for a letter for his work stating that he is currently unable to work. He asked to have the letter mailed to him at [address] [place] [address] If you have any questions for the patient he can be reached at [phone] [facility] 12-30-2023 Telephone encount er Note Letter completed. Please mail to patient. [facility] 12-30-2023 Telephone encount er Note Mailed to the address below. [facility] 12-28-2023 Miscellaneous Notes Formattin g of this note might be different from the original. Patient called to inform clinical staff someone will be faxing over disability paperwork for clinical staff to fill out. [employer] provided clinical fax number ([phone]) and requested name of company faxing paperwork over to keep an eye out. Patient stated they are not entirely sure the name of the company, but stated it will have their name and Dr Berg's name on it. Patient requested a return call once form in received. documented in this encounter [facility] 12-28-2023 Telephone encount er Note Patient called to inform clinical staff someone will be faxing over disability paperwork for clinical staff to fill out. [employer] provided clinical fax number ([phone]) and requested name of company faxing paperwork over to keep an eye out. Patient stated they are not entirely sure the name of the company, but stated it will have their name and Dr Berg's name on it. Patient requested a return call once form in received. [facility] 12-15-2023 Miscellaneous Notes Formattin g of this note might be different from the original. Please fax patients : referral for OT and PT and OVN To: [facility] Fax #:[phone] Phone #:[phone] ext. [phone] Who is calling: Zina Late encounter due to technical difficulties: Faxed included information to [phone] on 12/23/23 at 12:23 - demographics - Ambulatory referral to Occupational Therapy (Order # [id number]) on 12/12/2023 - Ambulatory referral to Physical Therapy (Order # [id number]) on 12/12/2023 - 12/03/23 Discharge Notes including History , Care Plan , and Detailed Report documented in this encounter [facility] 12-15-2023 Telephone encount er Note Please fax patients : referral for OT and PT and OVN To: [facility] Fax #:[phone] Phone #:[phone] ext. [phone] Who is calling: Zina [facility] 12-15-2023 Telephone encount er Note Late encounter due to technical difficulties: Faxed included information to [phone] on 12/23/23 at 12:23 - demographics - Ambulatory referral to Occupational Therapy (Order # [id number]) on 12/12/2023 - Ambulatory referral to Physical Therapy (Order # [id number]) on 12/12/2023 - 12/03/23 Discharge Notes including History , Care Plan , and Detailed Report T [facility] 11-09-2023 Evaluation note Encounter Date Diagnosis Assessment Notes Oct, Symptomatic varicose veins of both lower extremities (ICD-10 - I83.893) We discussed the venous handout page by page and all questions were addressed. Will start by obtaining a full functional venous duplex to evaluate for any venous valvular incompetence and go from there. We discussed the chronic and progressive nature of venous disease and the ongoing importance of conservative therapy efforts. Will get him started with graded compression stockings, prescription was sent to the pharmacy for pickup. He is instructed on the importance of graded compression stockings, leg elevation, good skin care moisturizer therapy, weight management, frequent activity in the overall management of his venous disease. Will see him back in the office once the full functional duplex is completed. [facility] Other 02-19-2021 NoteHNO ID: [id number] Author: Esteban Lazcano Service: ? Author Type: Physician Type: Progress Notes Filed: 11/30/2020 9:45 AM Note Text: Established Patient Visit 11/30/2020 HPI: 55 year old male returns for follow up for PD. He has moderate ED. Responds to viagra. Smokes 1.5-2 PPD. He has DM, HL. PMHx/PSHx: see above, otherwise unchanged Rx: reviewed and unchanged ROS: see above, otherwise unchanged Labs: None Imaging: None PE: General: Well masculinized, well nourished male Psych: euthymic, NAD Neuro: AANDOx3 Inguinal: No lesions, adenopathy, or hernias Phallus: normal, circumcised, significant plaque dorsally - proximal half of penis Meatus: orthotopic, patent, no discharge Scrotum: no lesions, normal rugae Testes: Descended, nontender, and no masses bilaterally L: 18 ccs R:18 ccs Epididymides: L Palp NT R palp NT Vas deferens: palpable bilaterally Varicocele: None Imp: 55 yo male with 30-40 degree dorsal R curvature, moderate ED responsive to PDE5s P: 1) We discussed options to include observation, traction, xiaflex and plication. All discussed in detail. Several questions answered. Risks and benefits discussed. Risks of surgery discussed. Medical Decision Making: Problems: Moderate: 2+ stable chronic illnesses Risk: Moderate: Decision on elective major surgery w/o risk factors Medical Decision Making Level: 4 - Moderate Esteban Lazcano MD Visit duration 40 minutes with greater than 50% of time [id number] counseling. Esteban Lazcano [facility] Work Phone: Hisnaxc general Narrative - Reported* Type Description Date Medical History Diabetes Medical History hyperlipidemia Medical History Stroke Medical History hypertension Surgical History tonsillectomy and adenoidectomy Surgical History carpal tunnel release bilat Surgical History ACL replacement right knee Hospitalization History see above Hospitalization History Stroke [facility] [employer] Other InstructionsNot on filedocumented in this encounter [facility] on filedocumented in this encounter [facility] on filedocumented in this encounter [facility] Summary Purpose Family History No Family History Records FoundNo Family History Records FoundNo Family History Records FoundNo Family History Records FoundNo Family History Records FoundNo Family History Records Found Advance Directives No Advanced Directives Records Found Advance Directive Response Recorded Date/ Time Advance Directives No August 1:49pm Latest Code Status on File Code Status Date Activated Date Inactivated Comments Full Code 12/03/2023 2:13 AM 12/12/2023 6:49 PM Chief Complaint and Reason for Visit Chief Complaint S70.02XA Additional Source Comments (unrecognized sect ion and content) No Status Records FoundNo Status Records FoundNo Status Records FoundNo Status Records FoundNo Status Records FoundNo Status Records Found INFORMATION SOURCE (unrecogn ized section and content) DATE CREATED AUTHOR 11/03/2021 [facility] DATE CREATED AUTHOR AUTHOR'S ORGANIZ ATION 12/09/2021 [facility] DATE CREATED AUTHOR AUTHOR'S ORGANIZ ATION 01/12/2023 Armaan Zhu [facility] DATE CREATED AUTHOR AUTHOR'S ORGANIZ ATION 01/25/2023 [facility] DATE CREATED AUTHOR AUTHOR'S ORGANIZ ATION 11/20/2023 [facility] DATE CREATED AUTHOR AUTHOR'S ORGANIZ ATION 01/22/2024 [facility] EPIC Care Teams (unrecognized sec tion and content) Team Status: Active Member Role Status Dates Milagros Baldwin DO Primary Care Provider Active Team Status: Inactive Member Role Status Dates Milagros Baldwin DO Primary Care Provider Active Fito Matta Jr, DO Attending Provider Active Medical Lab Technician Relationship Specialty Start Date End Date Milagros Baldwin DO [address] [place] [address] PCP - General Family Medicine 12/03/23 Medical Lab Technician Relationship Specialty Start Date End Date Milagros Baldwin DO [address] [place] [address] PCP - General Family Medicine 12/03/23 Goals (unrecognized section and content) Goals may be documented in a n alternate sectionNo Information REASON FOR VISIT (unrecogniz ed section and content) Reason Onset Date Comments fax 12/15/2023 Reason Onset Date Comments disability paperwork 12/28/2023 Reason Onset Date Comments Letter for School/Work 12/30/2023 FOR RECORDS PERTAINING TO PATIENTS WHO ARE OR HAVE BEEN ENROLLED IN A CHEMICAL DEPENDENCY/SUBSTANCEABUSE PROGRAM, SOME INFORMATION MAY BE OMITTED. This clinical summary was aggregated from multiple sources. Caution should be exercised in using it in the provision of clinical care. This summary normalizes information from multiple sources, and as a consequence, information in this document may materially change the coding, format and clinical context of patient data. In addition, data may be omitted in some cases. CLINICAL DECISIONS SHOULD BE BASED ON THE PRIMARY CLINICAL RECORDS. [facility]. provides no warranty or guarantee of the accuracy or completeness of information in this document.
--- NOTE | 2024-03-03 09:29 | CA_ITS ---
Patient Name: JOHN GILLESPIE MR#: [id number] : 1965 Exam Date: 03/03/2024 Ordering Doctor: Ronald Gooden M.D. ECHOCARDIOGRAM REPORT PROCEDURE: CA ECHO DOPPLER COMPLETE INDICATIONS: Pre op COMPARISON: None. DESCRIPTION: COMPLETE ECHOCARDIOGRAM Real-time transthoracic echocardiography with 2D, M-mode, spectral and color flow Doppler performed. QUALITY: Technical quality was good. LEFT VENTRICLE: Normal chamber size. Mild concentric left ventricular hypertrophy. LV EF: Global left ventricular systolic function is normal; visually estimated ejection fraction is 60 to 65%. No wall motion abnormalities. DIASTOLIC: Normal diastolic function. ATRIAL SEPTUM: Inadequately seen. LEFT ATRIUM: Normal chamber size. RIGHT ATRIUM: Normal chamber size. RIGHT VENTRICLE: Normal chamber size. Normal right ventricular systolic function. TRICUSPID VALVE: Normal mobility and thickness. No stenosis with trivial regurgitation. No evidence of pulmonary hypertension. RVSP 18mmHg MITRAL VALVE: Normal mobility and thickness. No evidence of mitral valve stenosis. There is no mitral annular calcification. Trivial mitral regurgitation. AORTIC VALVE: Normal trileaflet appearance. No visible sclerosis. Normal leaflet mobility. No evidence of aortic valve stenosis. Trivial aortic regurgitation. AORTIC ROOT: Normal diameter and appearance. PULMONIC VALVE: Normal thickness and mobility. No stenosis. No regurgitation. PERICARDIUM: No evidence of pericardial effusion. IVC: Collapses with inspirations. Normal size. CONCLUSION: 1. Global left ventricular systolic function is normal; visually estimated ejection fraction is 60 to 65% 2. Normal right ventricular size and systolic function 3. Normal diastolic function 4. Mildly increased left ventricular wall thickness 5. No significant valvular abnormalities Adult Echocardiography Procedure Report Left Ventricle LVEDD (3.7 - 5.6 cm): 4.76 cm LVESD (2.2 - 4.0 cm): 3.41 cm LVIVS thickness (0.6 - 1.2 cm): 1.30 cm LVPW thickness (0.5 - 1.0 cm): 1.40 cm e': 0.11 m/s E - e': 5.96 LVOT Max Gradient: 4.31 mm[Hg] LVOT Area (cm2): 1.04 m/s Peak Velocity (LVOT): 1.04 m/s Mean Velocity (LVOT): 0.68 m/s LVOT Diameter 2.39 cm Left Ventricular Ejection Fraction: 67.44 % Left Atrium LA Volume Index (2D A2C): 24.38 ml/m2 Left Atrium Systolic Dimension: 3.75 cm Mitral Valve MV E to A Ratio: 0.84 Mitral Valve A-Wave Peak Velocity: 0.77 m/s Mitral Valve E-Wave Peak Velocity: 0.64 m/s Right Ventricle RV Internal Diastolic Dimension: 3.32 cm Aorta AO Root Diam: 3.13 cm Ascending Ao Diam: 3.17 cm Aortic Valve AoV Area (Peak Lul): 3.51 cm2, 3.51 cm2 AoV Area (VTI): 3.12 cm2, 3.12 cm2 Peak Velocity(Antegrade Flow): 1.33 m/s Peak Gradient(Antegrade Flow): 7.06 mm[Hg] Mean Velocity(Antegrade Flow): 0.89 m/s Mean Gradient(Antegrade Flow): 3.65 mm[Hg] Velocity Time Integral: 29.12 cm Tricuspid Valve Peak Velocity (Regurgitant Flow): 1.95 m/s Pulmonic Valve Mean Gradient: 1.55 mm[Hg], 1.99 mm[Hg] Mean Velocity: 0.58 m/s, 0.68 m/s Peak Velocity: 0.87 m/s Peak Gradient: 3.06 mm[Hg], 3.06 mm[Hg] Right Atrium Right Atrium Systolic Pressure: 71.40 ml, 71.40 ml Dictated by: Jani Manning M.D. on 03/04/2024 at 12:40 Approved by: Jani Manning M.D. on 03/04/2024 at 12:44
== END 2024-03-03 08:29 | disposition home or self-care (01) ==
LOC: CARD 08:28
PROVIDERS: PCP Family Medicine; Visit Provider Student in an Organized Health Care Education/Training Program
DX: Z01.818 Encounter for other preprocedural examination (principal); I65.21 Occlusion and stenosis of right carotid artery
CPT/HCPCS: 93005; 93306

== ENCOUNTER 2024-03-29 06:26 | Outpatient (OUT) | payer OTHER, SELFPAY ==
--- NOTE | 2024-03-29 | PCN_ITS ---
CARDIAC STRESS TEST Requesting Physician: Jani Manning M.D. Procedure Date: 03/29/2024 REASON FOR TEST: Preoperative evaluation. At baseline, patient was noted to have sinus rhythm with normal intervals and no ischemic changes, with a resting heart rate of 67 and blood pressure of 128/88 mm/Hg. With infusion of adenosine, the patient?s heart rate increased to a maximum of 98 beats per minute with a maximum blood pressure of 128/88 mm/Hg. Following infusion of the drug, there were no ischemic changes noted on EKG. IMPRESSION: 1. No acute ischemic changes noted on EKG. 2. Nuclear portion of the stress test will be dictated separately by Radiology. KARSON
--- NOTE | 2024-03-29 06:15 | NM_ITS ---
Patient Name: JOHN GILLESPIE MR#: [id number] : 1965 Exam Date: 03/29/2024 Ordering Doctor: DR ANNABEL SEGUNDO M.D. RADIOLOGY REPORT PROCEDURE: NM PERFECTO PERF SPECT REST STR COMPARISON: None. INDICATIONS: PRE PROCEDURE CARDIOVASCULAR EXAM TECHNIQUE: Exam Description: Stress/Rest one day protocol gated SPECT Rest Imagin.5 mCi Tc-99m Cardiolite IV on 03/29/2024 Stress Imaging 30.0 mCi Tc-99m Cardiolite IV on 03/29/2024 Exercise Protocol: 0.4 mg Lexiscan given IV Heart Rate (bpm): Rest: 67 Max: 98 PMHR: 60 Blood Pressure: Rest: 128/88 Max: 128/88 Symptoms: Rest and peak stress ECG findings were normal and the exercise portion of the study was normal per attending physician Dr. Luna . For more details please see separate cardiac stress test report. FINDINGS: QUALITY OF STUDY: Excellent. PERFUSION DEFECT: LOCATION: Basal inferior. Mid-inferior. Apical inferior. SIZE: Medium (3-4 segments). SEVERITY: Mild. TYPE: Persistent. WALL MOTION: Normal. LV SIZE: Normal. 123 mL. TID / TCD: None; 1.0 LVEF: Abnormal. Calculated EF 54%. SUMMARY: Myocardial perfusion imaging study has ABNORMAL findings. CONCLUSION: 1. No acute or reversible ischemia. 2. Mildly decreased perfusion of the inferior wall versus diaphragm attenuation artifact. 3. Left ventricle volume is at upper limits of normal. 4. Left ventricle ejection fraction falls just below normal limits. 5. Normal wall motion. Dictated by: Phani Loco M.D. on 03/31/2024 at 07:22 Approved by: Phani Loco M.D. on 03/31/2024 at 07:25
[2024-03-29] MEDS: REGADENOSON 0.4 MG/5 ML SYRINGE 0.400000000000000022 MG IV (08:13)
== END 2024-03-29 06:27 | disposition home or self-care (01) ==
LOC: NM 06:26
PROVIDERS: PCP Family Medicine; Visit Provider Internal Medicine Interventional Cardiology
DX: Z01.810 Encounter for preprocedural cardiovascular examination (principal); Z01.818 Encounter for other preprocedural examination
CPT/HCPCS: 78452; 93017; A9500; J2785

== ENCOUNTER 2024-08-04 06:33 | Outpatient (OUT) | payer OTHER, SELFPAY ==
--- OUTSIDE RECORDS SUMMARY | 2024-08-04 06:37 | XMS_ITS | CCD ---
Author Organization [facility] Care Team Providers Care Manager Group Home Name Role Phone NICOLASA, DR GREY Admitting Unavailable PETZNICK, DR GREY Attending Unavailable PETZNICK, DR GREY Primary Care Unavailable PETZNICK, DR GREY Consulting Unavailable Petirwinick, DO Milagros Primary Care Provider DO Fito Matta Jr Attending Provider Dulce Maria Navarro Unavailable Fito Matta Jr Attending Unavailable Fito Matta Jr Admitting Unavailable Milagros Baldwin Primary Care Unavailable PetMilagros mendoza DO Primary Care Provider [phone] JANI MANNING Attending Unavailable MILAGROS BALDWIN Attending Unavailable MLIAGROS BALDWIN Referring Unavailable PETMILAGROS MENDOZA Attending Unavailable MILAGROS BALDWIN Referring Unavailable PETIRWINICKMILAGROS Attending Unavailable Petznick Milagros COMBS Primary Care Provider Milagros Baldwin DO Primary Care Provider Allergies Allergy Classification Reported Allergen(s) Allergy Type Date of Onset Reaction(s) Facility (1 source) clopidogrel Drug Allergy 12-19-2015 [facility] Repository (9 sources) clopidogrel; Translations: [CLOPIDOGREL] Drug Allergy 05-11-2023 Itching, Rash [employer] Work Phone: (1 source) clopidogrel Drug Allergy 11-09-2023 [facility] Repository Medications Current Medications Medication Drug Class(es) Dates Sig (Normalized) Sig (Original) acetaminophen 500 mg oral tablet (1 source) Start: 04-13-2024 take 1 tablet by mouth every six hours as needed for pain acetaminophen (TYLENOL EXTRA STRENGTH) 500 mg tablet Take 1 tablet (500 mg total) by mouth every 6 (six) hours as needed for pain. 30 tablet 04/13/2024 Active aspirin 81 mg chewable tablet (7 sources) Platelet Aggregation Inhibitor, Nonsteroidal Anti-inflammatory Drug Start: 12-13-2023 aspirin 81 mg chewable tablet Chew 1 tablet (81 mg total) and swallow in the morning. 30 tablet 2 12/13/2023 Active atorvastatin 80 mg oral tablet (8 sources) HMG-CoA Reductase Inhibitor Start: 05-17-2024 take 1 tablet by mouth once daily atorvastatin (Lipitor) 80 MG tablet Indications: Pure hypercholesterolemia (CMS/HCC) Take 1 tablet (80 mg) by mouth Daily 90 tablet 3 05/17/2024 Active Start: 12-12-2023 End: 03-11-2024 take 1 tablet by mouth once daily atorvastatin (LIPITOR) 20 mg tablet Take 1 tablet (20 mg total) by mouth nightly for 90 days. 30 tablet 2 12/12/2023 03/11/2024 Active Atorvastatin Arley cium Active Compression stockings, 20-30mmHg, calf 20-30mmHg (1 source) Start: 11-09-2023 Compression stockings, 20-30mmHg, calf 20-30mmHg externally daily as directed for 3 days Oct, Active famotidine 20 mg oral tablet (1 source) Histamine-2 Receptor Antagonist take 1 tablet by mouth in the morning famotidine (PEPCID) 20 mg tablet Indications: gastroesophageal reflux disease Take 1 tablet (20 mg total) by mouth in the morning. Indications: gastroesophageal reflux disease. Active FLUoxetine 20 mg oral capsule (8 sources) Serotonin Reuptake Inhibitor Start: 10-26-2023 End: 01-18-2025 take 1 capsule by mouth once daily FLUoxetine (PROzac) 20 MG capsule Indications: Generalized anxiety disorder (CMS/HCC) Take 1 capsule (20 mg) by mouth Daily 90 capsule 3 01/19/2024 01/18/2025 Active ozempic (0.25 or 0.5 mg/dose) 2 mg/3ml solution pen-injector (1 source) Ozempic (0.25 or 0.5 MG/DOSE) 2 MG/3ML INJECT 0.5MG UNDER THE SKIN EVERY 7 DAYS Subcutaneous for 90 Days Active 1 mg dose 1.5 ml semaglutide 1.34 mg/ml pen injector (4 sources) semaglutide 1 mg /dose (2 mg/1.5 mL) pen injector Indications: type 2 diabetes mellitus Inject 1 mg under the skin Once a week Indications: type 2 diabetes mellitus. Active semaglutide (OZE MPIC) 0.25 mg or 0.5 mg(2 mg/1.5 mL) pen injector Inject 0.25 mg under the skin Once a week. Mondays 0 Active semaglutide (Ozempic, 1 MG/DOSE,) 4 MG/3ML solution pen-injector (3 sources) Start: 01-21-2024 End: 01-20-2025 inject 1 mg by subcutaneous injection every week semaglutide (Ozempic, 1 MG/DOSE,) 4 MG/3ML solution pen-injector Indications: Type 2 diabetes mellitus with other circulatory complications (CMS/HCC) Inject 1 mg under the skin 1 (one) time per week 9 mL 3 01/21/2024 01/20/2025 Active Completed/Discontinued Medications Medication Drug Class(es) Dates Sig (Normalized) Sig (Original) 24 hr metFORMIN hydrochloride 500 mg extended release oral tablet (8 sources) Biguanide Start: 07-21-2023 End: 07-22-2024 metFORMIN XR (GLUCOPHAGE XR) 500 mg 24 hr tablet Indications: type 2 diabetes mellitus Take 2 tablets (1,000 mg total) by mouth in the morning and 2 tablets (1,000 mg total) before bedtime. Indications: type 2 diabetes mellitus. 07/21/2023 07/20/2024 metFORMIN HCl Ac tive Problems Active Problems Problem Classification Problem Date Documented Date Episodic/Chronic Acute cerebrovascular disease (3 sources) Carotid artery stenosis; Translations: [Cerebral infarction due to unspecified occlusion or stenosis of unspecified carotid artery] Onset: 12-17-2023 Resolved: 07-22-2024 12-17-2023 Chronic Anxiety disorders (8 sources) Generalized anxiety disorder; Translations: [Generalized anxiety disorder] Onset: 05-11-2023 Resolved: 12-17-2023 06-08-2023 Chronic Cardiac and circulatory congenital anomalies (4 sources) Patent foramen ovale; Translations: [Patent foramen ovale] Onset: 05-11-2023 05-11-2023 Chronic Diabetes mellitus with complications (5 sources) Type 2 diabetes mellitus; Translations: [Type 2 diabetes mellitus with other circulatory complications] Onset: 05-11-2023 05-11-2023 Chronic Diabetes mellitus without complication (1 source) Type 2 diabetes mellitus without complication; Translations: [Type 2 diabetes mellitus without complications] Onset: 02-17-2024 02-17-2024 Chronic Disorders of lipid metabolism (5 sources) Pure hypercholesterolemia; Translations: [Pure hypercholesterolemia, unspecified] Onset: 05-11-2023 05-11-2023 Chronic Essential hypertension (5 sources) Essential hypertension; Translations: [Essential (primary) hypertension] Onset: 05-11-2023 05-11-2023 Chronic Hyperplasia of prostate (5 sources) Benign prostatic hyperplasia; Translations: [Benign prostatic hyperplasia with lower urinary tract symptoms] Onset: 05-11-2023 05-11-2023 Chronic Late effects of cerebrovascular disease (3 sources) Incoordination; Translations: [Other sequelae of cerebral infarction] Onset: 02-17-2024 02-17-2024 Chronic Occlusion or stenosis of precerebral arteries (6 sources) Right carotid artery occlusion; Translations: [Occlusion and stenosis of right carotid artery] Onset: 12-03-2023 12-03-2023 Chronic Other circulatory disease (5 sources) History of cerebrovascular accident; Translations: [Personal history of transient ischemic attack (TIA), and cerebral infarction without residual deficits] Onset: 06-08-2023 06-08-2023 Episodic Other male genital disorders (3 sources) Male erectile dysfunction, unspecified; Translations: [Impotence of organic origin] Onset: 05-11-2023 05-11-2023 Chronic Other male genital disorders (3 sources) Pain in penis; Translations: [Other specified disorders of penis] Onset: 05-11-2023 05-11-2023 Chronic Other male genital disorders (3 sources) Induratio penis plastica; Translations: [Induration penis plastica] Onset: 01-21-2024 01-21-2024 Chronic Other screening for suspected conditions (not mental disorders or infectious disease) (2 sources) Patient encounter status; Translations: [Encounter for screening for malignant neoplasm of prostate] 07-22-2024 Episodic Peripheral and visceral atherosclerosis (3 sources) Peripheral vascular disease, unspecified; Translations: [Intermittent claudication] Onset: 02-04-2024 Chronic Residual codes; unclassified (5 sources) Obstructive sleep apnea syndrome; Translations: [Obstructive sleep apnea (adult) (pediatric)] Onset: 02-17-2024 07-22-2024 Chronic Residual codes; unclassified (2 sources) Family history of ischemic heart disease and other diseases of the circulatory system; Translations: [Family history of ischemic heart disease and other diseases of the circulatory system] Onset: 03-08-2024 Episodic Residual codes; unclassified (2 sources) High risk homosexual behavior; Translations: [High risk homosexual behavior] 07-22-2024 Episodic Substance-related disorders (1 source) Cigarette smoker ; Translations: [Nicotine dependence, cigarettes, uncomplicated] Onset: 02-04-2024 02-04-2024 Chronic Transient cerebral ischemia (2 sources) Vertebrobasilar artery syndrome; 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] Onset: 02-18-2024 03-31-2024 Chronic Unclassified (1 source) Contusion of left hip, initial encounter; Translations: [Contusion of left hip, initial encounter] Onset: 09-22-2023 Past or Other Problems Problem Classification Problem Date Documented Date Episodic/Chronic Mood disorders (4 sources) Mood disorders Onset: 12-03-2023 Resolved: 05-10-2024 12-03-2023 Other aftercare (1 source) Surgical follow-up; Translations: [Encounter for follow-up examination after completed treatment for conditions other than malignant neoplasm] Onset: 04-28-2024 04-28-2024 Episodic Other diseases of veins and lymphatics (3 sources) Vascular insufficiency; Translations: [Venous insufficiency (chronic) (peripheral)] Onset: 06-08-2023 06-08-2023 Episodic Spondylosis; intervertebral disc disorders; other back problems (3 sources) Acute back pain with sciatica; Translations: [Lumbago with sciatica, left side] Onset: 05-11-2023 05-11-2023 Episodic Varicose veins of lower extremity (3 sources) Varicose veins of lower extremity; Translations: [Varicose veins of bilateral lower extremities with other complications] Onset: 02-04-2024 Episodic Results Test Name Value Interpretation Reference Range Facility HbA1c (Bld) [Mass fraction]o n 07-22-2024 Interpretation and review of laboratory results [facility] 07-22-2024 HbA1c (Bld) [Mass fraction] 7.1 % [facility] 36on 04-04-2024 36 Regarding stress geovanna t performed on 03/29/2024: MD Esteban Ramirez MA No ischemia: he would be at acceptable risk to proceed with no further cardiovascular testing. Recommend strict heart rate and blood pressure control and avoidance of major fluid shifts perioperatively. Thank you I faxed this note to Dr. Gooden's evaluation specialist Milagros. Normal [facility] Office Visiton 03-08-2024 Follow-up visit [id number] Yohana Wallace II 1965 M Date Provider Department Center 03/08/2024 [id number] MANNING Family History Problem Relation Age of Onset Coronary artery disease Father Other Father Family Status - Relation Status Age at Father Level of Service:37985 ME OFFICE/OUTPATIENT NEW MODERATE MDM 45 MINUTES Normal [facility] Orders Onlyon 03-04-2024 Orders Only [id number] Yohana Wallace II 1965 M Date Provider Department Center 03/04/2024 [id number], HISTORICAL BH CARD [facility] No family history on file Normal [facility] CBC AUTO DIFFon 01-19-2023 BASO # 0.1 103/ul Normal 0.0-0.1 [facility] Comment on above: Performed By: #### C BC #### [facility] [address] [place] [address] Dr. Ramirez Nevarez Basophils/100 WBC (Bld) 0.7 % Normal 0.2-2.0 [facility] Comment on above: Performed By: #### C BC #### [facility] [address] [address] [address] Ramirez Nevarez EO # 0.3 103/ul Normal 0.0-0.7 [facility] Comment on above: Performed By: #### C BC #### [facility] [address] [place] [address] Dr. Ramirez Nevarez Eosinophils/100 WBC (Bld) 2.1 % Normal 0.9-7.0 [facility] Comment on above: Performed By: #### C BC #### [facility] [address] [place] [address] Dr. Ramirez Nevarez Erythrocyte distribution width (RBC) [Ratio] 12.7 % Normal 11.0-15.0 [facility] Comment on above: Performed By: #### C BC #### [facility] [address] [place] [address] Dr. Ramirez Nevarez Hematocrit (Bld) [Volume fraction] 44.3 % Normal 42.0-54.0 [facility] Comment on above: Performed By: #### C BC #### [facility] [address] [place] [address] Dr. Ramirez Nevarez Hemoglobin (Bld) [Mass/Vol] 14.8 g/dL Normal 14.0-18.0 [facility] Comment on above: Performed By: #### C BC #### [facility] [address] [place] [address] Dr. Ramirez Nevarez IG # 0.06 10e3/ul Critically high 0.00-0.03 [facility] Comment on above: Performed By: #### C BC #### [facility] [address] [place] [address] Dr. Ramirez Nevarez IG % 0.4 % Normal 0.0-0.5 [facility] Comment on above: Performed By: #### C BC #### [facility] [address] [place] [address] Dr. Ramirez Nevarez LYMPH # 2.8 103/ul Normal 1.2-3.8 [facility] Comment on above: Performed By: #### C BC #### [facility] [address] [place] [address] Dr. Ramirez Nevarez Lymphocytes/100 WBC (Bld) 21.0 % Normal 20.5-60.0 [facility] Comment on above: Performed By: #### C BC #### [facility] [address] [place] [address] Dr. Ramirez Nevarez MANUAL DIFF REQ NO Normal [facility] Comment on above: Performed By: #### C BC #### [facility] [address] [address] [address] Ramirez Nevarez MCH (RBC) [Entitic mass] 28.4 pg Normal 25.9-34.0 [facility] Comment on above: Performed By: #### C BC #### [facility] [address] [address] [address] Ramirez Nevarez MCHC (RBC) [Mass/Vol] 33.4 g/dL Normal 29.9-35.2 [facility] Comment on above: Performed By: #### C BC #### [facility] [address] [address] [address] Ramirez Nevarez MCV (RBC) [Entitic vol] 84.9 fL Normal 80.0-94.0 [facility] Comment on above: Performed By: #### C BC #### [facility] [address] [place] [address] Dr. Ramirez Nevarez MONO # 1.0 103/ul Critically high 0.3-0.8 [facility] Comment on above: Performed By: #### C BC #### [facility] [address] [place] [address] Dr. Ramirez Nevarez Monocytes/100 WBC (Bld) 7.5 % Normal 1.7-12.0 [facility] Comment on above: Performed By: #### C BC #### [facility] [address] [place] [address] Dr. Ramirez Nevarez NEUT # 9.3 103/ul Critically high 1.4-6.5 [facility] Comment on above: Performed By: #### C BC #### [facility] [address] [place] [address] Dr. Ramirez Nevarez Neutrophils/100 WBC (Bld) 68.3 % Normal 43.0-75.0 [facility] Comment on above: Performed By: #### C BC #### [facility] [address] [place] [address] Dr. Ramirez Nevarez Platelet mean volume (Bld) [Entitic vol] 9.2 fL Critically low 9.5-13.5 [facility] Comment on above: Performed By: #### C BC #### [facility] [address] [address] [address] Ramirez Nevarez PLT 266 103/ul Normal 150-450 [facility] Comment on above: Performed By: #### C BC #### [facility] [address] [address] [address] Ramirez Nevarez RBC 5.22 106/ul Normal 4.70-6.10 [facility] Comment on above: Performed By: #### C BC #### [facility] [address] [address] [address] Ramirez Nevarez WBC 13.6 103/ul Critically high 4.0-11.0 [facility] Comment on above: Performed By: #### C BC #### [facility] [address] [place] [address] Dr. Ramirez Nevarez LIPID PROFILEon 01-19-2023 CHOL-HDL RATIO NORM SEE BELOW Normal [facility] Comment on above: Result Comment: 3.3 - 4.4 LOW RISK 4.4 - 7.1 AVERAGE RISK 7.1 - 11.0 MODERATE RISK >11.0 HIGH RISK Performed By: #### C MP, LIPID #### [facility] [address] [place] [address] Dr. Ramirez Nevarez Cholesterol [Mass/Vol] 123 mg/dL Normal <=200 [facility] Comment on above: Performed By: #### C MP, LIPID #### [facility] [address] [place] [address] Dr. Ramirez Nevarez Cholesterol in HDL [Mass/Vol] 42 mg/dL Normal 40-60 [facility] Comment on above: Performed By: #### C MP, LIPID #### [facility] [address] [place] [address] Dr. Ramirez Nevarez Cholesterol in LDL [Mass/Vol] 68.4 mg/dL Normal [facility] Comment on above: Performed By: #### C MP, LIPID #### [facility] [address] [place] [address] Dr. Ramirez Nevarez Cholesterol.total/C holesterol in HDL [Mass ratio] 2.9 {ratio} Normal [facility] Comment on above: Performed By: #### C MP, LIPID #### [facility] [address] [address] [address] Ramirez Nevarez HDL NORMAL > or = 60 mg/dl - LO W CARDIOVASCULAR RISK <40 mg/dl - HIGH CARDIOVASCULAR RISK Normal [facility] Comment on above: Performed By: #### C MP, LIPID #### [facility] [address] [address] [address] Ramirez Nevarez LDL CALC NORMAL SEE BELOW Normal [facility] Comment on above: Result Comment: <100 mg/dl OPTIMAL 100 - 129 mg/dl NEAR OR ABOVE OPTIMAL 130 - 159 mg/dl BORDERLINE HIGH 160 - 189 mg/dl HIGH >190 mg/dl VERY HIGH Performed By: #### C MP, LIPID #### [facility] [address] [address] [address] Ramirez Nevarez Triglyceride [Mass/Vol] 63 mg/dL Normal <=150 [facility] Comment on above: Performed By: #### C MP, LIPID #### [facility] [address] [address] [address] Ramirez Nevarez VLDL CALC 12.6 mg/dL Normal [facility] Comment on above: Performed By: #### C MP, LIPID #### [facility] [address] [address] [address] Ramirez Nevarez MICROALB CREAT RATIO RANDOMo n 01-19-2023 mALB <1.3 Normal <=30.0 [facility] Comment on above: Performed By: #### M CRR #### [facility] [address] [address] [address] Ramirez Nevarez MALB CR RATIO RANGE SEE BELOW Normal [facility] Comment on above: Result Comment: NO M ICROALBUMINURIA 0-29 MG/G CLINICAL MICROALBUMINURIA 30-300 MG/G MACROALBUMINURIA >300 MG/G Performed By: #### M CRR #### [facility] [address] [address] [address] Ramirez Nevarez URINE CREAT 139.97 mg/dL Normal 20.00-300.00 [facility] Comment on above: Performed By: #### M CRR #### [facility] [address] [address] [address] Ramirez Nevarez PROF 14(COMP METB)on 023 Albumin [Mass/Vol] 3.5 g/dL Normal 3.4-5.0 [facility] Comment on above: Performed By: #### C MP, LIPID #### [facility] [address] [place] [address] Dr. Ramirez Nevarez Albumin/Globulin [Mass ratio] 0.9 {ratio} Normal [facility] Comment on above: Performed By: #### C MP, LIPID #### [facility] [address] [place] [address] Dr. Ramirez Nevarez ALP [Catalytic activity/Vol] 79 U/L Normal 46-116 [facility] Comment on above: Performed By: #### C MP, LIPID #### [facility] [address] [place] [address] Dr. Ramirez Nevarez ALT [Catalytic activity/Vol] 25 U/L Normal 16-63 [facility] Comment on above: Performed By: #### C MP, LIPID #### [facility] [address] [place] [address] Dr. Ramirez Nevarez Anion gap [Moles/Vol] 12.5 mmol/L Normal [facility] Comment on above: Performed By: #### C MP, LIPID #### [facility] [address] [place] [address] Dr. Ramirez Nevarez AST [Catalytic activity/Vol] 14 U/L Critically low 15-37 [facility] Comment on above: Performed By: #### C MP, LIPID #### [facility] [address] [place] [address] Dr. Ramirez Nevarez Bilirubin [Mass/Vol] 0.4 mg/dL Normal 0.2-1.0 [facility] Comment on above: Performed By: #### C MP, LIPID #### [facility] [address] [place] [address] Dr. Ramirez Nevarez Calcium [Mass/Vol] 9.6 mg/dL Normal 8.5-10.1 [facility] Comment on above: Performed By: #### C MP, LIPID #### [facility] [address] [place] [address] Dr. Ramirez Nevarez Chloride [Moles/Vol] 103 mmol/L Normal 98-107 [facility] Comment on above: Performed By: #### C MP, LIPID #### [facility] [address] [place] [address] Dr. Ramirez Nevarez CO2 [Moles/Vol] 27.1 mmol/L Normal 21.0-32.0 [facility] Comment on above: Performed By: #### C MP, LIPID #### [facility] [address] [place] [address] Dr. Ramirez Nevarez Creatinine [Mass/Vol] 0.92 mg/dL Normal 0.70-1.30 [facility] Comment on above: Performed By: #### C MP, LIPID #### [facility] [address] [place] [address] Dr. Ramirez Nevarez EGFR-AF RUSSIAN >60 Normal >=60 [facility] Comment on above: Performed By: #### C MP, LIPID #### [facility] [address] [place] [address] Dr. Ramirez Nevarez EGFR-NON AF RUSSIAN >60 Normal >=60 [facility] Comment on above: Performed By: #### C MP, LIPID #### [facility] [address] [place] [address] Dr. Ramirez Nevarez Globulin (S) [Mass/Vol] 3.9 g/dL Normal [facility] Comment on above: Performed By: #### C MP, LIPID #### [facility] [address] [place] [address] Dr. Ramirez Nevarez Glucose [Mass/Vol] 176 mg/dL Critically high 74-106 [facility] Comment on above: Performed By: #### C MP, LIPID #### [facility] [address] [place] [address] Dr. Ramirez Nevarez Potassium [Moles/Vol] 4.6 mmol/L Normal 3.5-5.1 [facility] Comment on above: Performed By: #### C MP, LIPID #### [facility] [address] [place] [address] Dr. Ramirez Nevarez Protein [Mass/Vol] 7.4 g/dL Normal 6.4-8.2 [facility] Comment on above: Performed By: #### C MP, LIPID #### [facility] [address] [place] [address] Dr. Ramirez Nevarez Sodium [Moles/Vol] 138 mmol/L Normal 136-145 [facility] Comment on above: Performed By: #### C MP, LIPID #### [facility] [address] [place] [address] Dr. Ramirez Nevarez Urea nitrogen [Mass/Vol] 19.0 mg/dL Critically high 7.0-18.0 [facility] Comment on above: Performed By: #### C MP, LIPID #### [facility] [address] [place] [address] Dr. Ramirez Nevarez Urea nitrogen/Creatinine [Mass ratio] 20.7 mg/mg Normal [facility] Comment on above: Performed By: #### C MP, LIPID #### [facility] [address] [place] [address] Dr. Ramirez Nevarez In office Testingon 01-08-20 23 In office Testing [id number]:[id number] Normal [facility] US Venous, Unilat, Lower Ext [...] by Bunny Deshpande on 12/09/2021 1206 Normal [facility] XR Tibia/Fibula Righton 11-13 XR Tibia/Fibula Right [...] by Bunny Deshpande on 12/09/2021 1140 Normal [facility] CNOVon 11-30-2020 CNOV Office Visit ([facility]OL[facility] ) MARIELY WALLACE ([id number]) 1965 M Date Time Provider Department 11/30/20 9:15 AM ESTEBAN LAZCANO [facility] During your visit today, we recorded the [...] minutes with greater than 50% of time [id number] counseling. MD Esteban Cisse MD 11/30/2020 9:30 AM Addendum Penile Plication for Penile Curvature (Peyronie's Disease) How long is the procedure? The operating time for a penile plication is around 45-60 minutes. A general anesthetic usually is used and you will be asleep. You will be discharged the same day to home. We prefer that out-of-town patients stay in the [place] for at least 1 day after surgery. [...] the Traction device Referring Provider: ESTEBAN LAZCANO [[id number]] Allergies As of Date: 11/30/2020 Noted Allergy [...] Date 11/12 (more content not included)... Normal [facility] Vital Signs Date Time Vital Sign Value Performing Clinician Facility 07-22-2024 09:45-0400 Body height 174 cm Milagrosherminia Martinokelly DO Work Phone: [facility] 07-22-2024 09:45-0400 Body mass index (BMI) [Ratio] 31.92 kg/m2 Milagros Petznick DO Work Phone: [facility] [place] 07-22-2024 09:45-0400 Body temperature 98.4 [degF] Milagros Petznick DO Work Phone: [facility] [place] 07-22-2024 09:45-0400 Body weight 96.62 kg Milagros Petznick DO Work Phone: [facility] [place] 07-22-2024 09:45-0400 Diastolic blood pressure 78 mm[Hg] Milagros Petznick DO Work Phone: [facility] [place] 07-22-2024 09:45-0400 Heart rate 80 /min Milagros Petznick DO Work Phone: [facility] [place] 07-22-2024 09:45-0400 SaO2% (BldA) [Mass fraction] 97 % Milagros Petznick DO Work Phone: [facility] [place] 07-22-2024 09:45-0400 Systolic blood pressure 122 mm[Hg] Milagros Petznick DO Work Phone: [facility] [place] 11-09-2023 10:00-0500 Body height 173.99 cm Dulce Maria Navarro Other [facility] Other 11-09-2023 10:00-0500 Body mass index (BMI) [Ratio] 35.21 kg/m2 Dulce Maria Navarro Other [facility] Other 11-09-2023 10:00-0500 Body temperature 97.8 [degF] Dulce Maria Navarro Other [facility] Other 11-09-2023 10:00-0500 Body weight 106.6 kg Dulce Maria Navarro Other [facility] Other 11-09-2023 10:00-0500 Diastolic blood pressure 62 mm[Hg] Dulce Maria Navarro Other [facility] Other 11-09-2023 10:00-0500 SaO2% (BldA) [Mass fraction] 96 % Dulce Maria Navarro Other [facility] Other 11-09-2023 10:00-0500 Systolic blood pressure 116 mm[Hg] Dulce Maria Navarro Other [facility] Other Encounters Encounter Date Encounter Type Care Provider Facility Start: 07-22-2024 End: 07-22-2024 Bamboo flowsheet Milagros Austinick DO Work Phone: [facility] Start: 07-22-2024 End: 07-22-2024 Bamboo flowsheet Milagros Austinick DO Work Phone: [facility] Start: 07-22-2024 End: 07-22-2024 ambulatory MILAGROS BALDWIN Not Available Start: 07-22-2024 End: 07-22-2024 Office outpatient visit 25 minutes Milagros Austinick DO Work Phone: [facility] Comment on above: Obstructive sleep ap radha (Primary Dx); Type 2 diabetes mellitus with other circulatory complications (CMS/HCC); Essential hypertension (CMS/HCC); Benign prostatic hyperplasia with urinary frequency; Pure hypercholesterolemia (CMS/HCC); History of CVA (cerebrovascular accident); Generalized anxiety disorder (CMS/HCC); Preventative health care; Screening for prostate cancer; High risk homosexual behavior Start: 07-22-2024 End: 07-22-2024 Patient encounter status Milagros [place] Petznick DO Work Phone: [facility] Start: 07-18-2024 End: 07-27-2024 Telephone encounter Jessica Fulton RN [facility] Start: 03-08-2024 End: 03-08-2024 ambulatory [facility] Start: 03-08-2024 End: 03-08-2024 Encounter for other preprocedural examination [facility] Start: 01-21-2024 End: 01-21-2024 ambulatory MILAGROS BALDWIN [...] End: 11-09-2023 ambulatory Dulce Maria Navarro Other [facility] Other Start: 11-09-2023 FQ visit new patient Dulce Maria salter [facility] Start: 09-22-2023 End: 09-22-2023 ambulatory DO Milagros Baldwin Work Phone: [facility] Work Phone: Start: 09-22-2023 End: 09-22-2023 Patient encounter procedure DO Milagros Baldwin Work Phone: [facility] [address] Work Phone: Start: 01-25-2023 Encounter for genera l adult medical examination without abnormal findings DR MILAGROS BALDWIN [facility] Start: 01-19-2023 End: 01-20-[address] MILAGROS BALDWIN Facility:[facility] Start: 01-19-2023 End: 01-20-2023 Encounter for general adult medical examination without abnormal findings DR MILAGROS BALDWIN Facility:[facility] Procedures Date Procedure Procedure Detail Performing Clinician Start: 07-22-2024 Hemoglobin glycosyla anay a1c Milagros Baldwin DO Work Phone: Start: 05-10-2024 Adult depression scr eening assessment Jessica Fulton RN Start: 12-03-2023 Adult depression scr eening assessment Abena Marcano Plan of Treatment Date Care Activity Detail Author Start: 02-05-2026 Screening for malignant neoplasm of colon [facility] Start: 06-01-2025 Tobacco Counseling Tobacco Counseling [facility] Start: 05-10-2025 Adult BMI Screening Adult BMI Screening [facility] Start: 05-10-2025 Depression Screening Depression Screening [facility] Start: 05-10-2025 Tobacco Screening Tobacco Screening [facility] Start: 01-23-2025 End: 01-23-2025 Patient encounter procedure 01/23/2025 10:15 AM EDT Office Visit [facility] [address] [place] [address] Milagros Baldwin DO [address] [place] [address] [facility] Start: 12-11-2024 Adult BMI Screening Adult BMI Screening [facility] Start: 12-05-2024 Tobacco Screening Tobacco Screening [facility] Start: 12-03-2024 Depression Screening Depression Screening [facility] Start: 11-04-2024 Glaucoma screening Diabetes: Retinopathy Screening [facility] Start: 10-26-2024 End: 10-26-2024 Patient encounter procedure 10/26/2024 1:30 PM EST Office Visit [facility] [address] [place] [phone] New Berg MD [address] [place] [phone] [facility] Start: 10-22-2024 Hemoglobin A1c measurement Diabetes: Hemoglobin A1C [facility] Start: 09-15-2024 End: 09-15-2024 Patient encounter procedure 09/15/2024 11:40 AM EST Office Visit [facility] [address] [place] [phone] Ronald Gooden MD [address], [address] [address] [facility] Start: 07-22-2024 End: 07-22-2025 HIV-1/HIV-2 antigen/antibody combination immunoassay HIV 1/2 antibodies, rapid Lab Routine High risk homosexual behavior Expected: 07/22/2024 (Approximate), Expires: 07/22/2025 [facility] Comment on above: Expected: 07/22/2024 (Approximate), Expi res: 07/22/2025 Start: 07-22-2024 End: 07-22-2025 Prostate specific Ag [Mass/volume] in Serum or Plasma PSA Lab Routine Screening for prostate cancer Expected: 07/22/2024 (Approximate), Expires: 07/22/2025 [facility] Comment on above: Expected: 07/22/2024 (Approximate), Expi res: 07/22/2025 Start: 06-12-2024 Influenza vaccination [facility] Start: 04-21-2024 Hemoglobin A1c measurement Diabetes: Hemoglobin A1C [facility] Start: 02-04-2024 End: 02-04-2024 Patient encounter procedure 02/04/2024 10:20 AM EDT Office Visit [facility] [address] [place] [address] Ronald Gooden MD [address] [address] [facility] Start: 01-20-2024 End: 01-20-2024 Patient encounter procedure 01/20/2024 2:30 PM EDT Office Visit [facility] [address] [place] [phone] New Berg MD [address] [place] [phone] [facility] Start: 01-20-2024 Urine screening for protein Diabetes: Urine Protein Screening [facility] Start: 12-28-2023 End: 12-28-2023 Patient encounter procedure 12/28/2023 11:00 AM EDT Appointment [facility] [address] [place] [address] [facility] Start: 2014 Administration of varicella zoster vaccine Zoster (Shingles) Vaccine (1 of 2) [facility] Start: 1983 DTaP,Tdap and Td Vaccines (1 - Tdap) DTaP,Tdap and Td Vaccines (1 - Tdap) [facility] Start: 1982 Adult BMI Follow Up Plan Adult BMI Follow Up Plan [facility] Start: 1982 Diabetic foot examination Diabetic Foot Exam [facility] Start: 1964 Glaucoma screening Diabetic Ophthalmology Exam [facility] Start: 1964 Screening for malignant neoplasm of colon [facility] Start: 1964 Urine screening for protein Urine Microalbumin [facility] CBC W Auto Different ial panel - Blood CBC and differential Lab Routine Preventative health care Ordered: 07/22/2024 [facility] Comment on above: Ordered: 07/22/2024 Comprehensive metabo lic 2000 panel - Serum or Plasma Comprehensive metabolic panel Lab Routine Preventative health care Ordered: 07/22/2024 [facility] Work Phone: Comment on above: Ordered: 07/22/2024 Lipid 1996 panel - Serum or Plasma Lipid panel Lab Routine Preventative health care Ordered: 07/22/2024 [facility] Comment on above: Ordered: 07/22/2024 Microalbumin/Creatin ine panel in random Urine Microalbumin / creatinine urine ratio Lab Routine Type 2 diabetes mellitus with other circulatory complications (CMS/HCC) Ordered: 07/22/2024 [facility] Comment on above: Ordered: 07/22/2024 Thyrotropin [Units/volume] in Serum or Plasma TSH Lab Routine Preventative health care Ordered: 07/22/2024 [facility] Comment on above: Ordered: 07/22/2024 Immunizations Immunization Date Immunization Notes Care Provider Jennifer [email or web address] 09-06-2023 influenza, injectabl e, quadrivalent, preservative free Milagros Baldwin DO Work Phone: [facility] 09-06-2023 influenza virus vacc ine, unspecified formulation Milagros Baldwin DO Work Phone: [facility] 06-24-2022 influenza, injectabl e, quadrivalent, preservative free Milagros Petznick DO Work Phone: [facility] 06-24-2022 SARS-COV-2 (COVID-19 ) vaccine, mRNA, spike protein, LNP, bivalent, preservative free, 30 mcg/0.3 mL dose, malcom-sucrose formulation Milagros Petznick DO Work Phone: [facility] 08-20-2021 Influenza, injectabl e, Madin Barbie Canine Kidney, preservative free, quadrivalent Milagros Petznick DO Work Phone: [facility] 07-25-2020 influenza virus vacc ine, unspecified formulation Milagros Petznick DO Work Phone: [facility] 07-05-2020 influenza, injectabl e, quadrivalent, preservative free Milagros Petznick DO Work Phone: [facility] Payers Date Payer Category Payer Commercial Managed C are - POS [employer] [id number] 2023 Managed Care HMO (unspecified) [employer]ET[employer] AETNA [id number] 2023-Present [address] [place] [address] O [id number] 2023 Private Health Insurance AETNA A ETNA POS II [id number] 2023-Present [phone] [address] [place] [address] [id number] 2023 Private Health Insurance [id number] 2023 Self-pay [id number] 2023 Unknown [id number] 1 1964 Unknown [id number] 1964 Unknown [id number] 1964 Unknown [id number] 1964 Unknown [id number] 1959 Private Health Insurance [id number] Private Health Insurance [id number] Unknown MMO [id number] Unknown Jany BC/BS [id number] Unknown [id number] 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 [id number] Social History Date Type Detail Facility [facility] Work Phone: Start: 1965 Sex Assigned At Male [facility] Start: 12-03-2023 End: 05-10-2024 Sex Assigned At [facility] [employer] Other Start: 10-12-1983 End: 04-04-2024 Tobacco smoking status NHIS Smokes tobacco daily [facility] Start: 10-12-1983 History of tobacco use Cigarette Smoker [facility] Start: 12-03-2023 End: 05-10-2024 Cigarettes smoked current (pack per day) - Reported [address] [facility] Start: 12-03-2023 End: 01-21-2024 Tobacco use and exposure Smokeless tobacco non-user [facility] Start: 12-05-2023 End: 07-22-2024 Alcohol intake Current drinker of alcohol (finding) [facility] Has the [employer], or water [employer] threatened to shut off services in your home in past 12Mo No [facility] How often to you hav e a drink containing alcohol? 2-3 time sa week [facility] How many standard drinks containing alcohol do you have on a typical day? 1 or [address] [facility] How often do you hav e 6 or more drinks on 1 occasion? Never [facility] Adolescent depressio n screening assessment [address] [facility] Start: 1965 Sex Assigned At Not on file [facility] How often to you hav e a drink containing alcohol? Monthly or less [facility] Start: 05-06-2023 Alcohol Comment Monthly or less [facility] Start: 12-24-2022 Gender identity Identifies as male gender (finding) [facility] Start: 12-24-2022 Sexual orientation Bisexual (finding) [facility] History of tobacco use Passive smoker [facility] Start: 04-04-2024 Tobacco use and exposure Former smokeless tobacco user [facility] History of tobacco use Chews Tobacco [facility] Start: 05-10-2024 Alcoholic beverage intake Ex-drinker (finding) [facility] Start: 12-02-2023 Sex Male (finding) [facility] Medical Equipment Procedure Code Equipment Code Equipment Origin al Text Equipment Identifier Dates USE TO TEST FAST ING BLOOD SUGAR 2 TIMES DAILY [id number] Start: 04-20-2024 Graft Cv 60cm 7m m Thor [address] 2 Vlr Clgn [facility] - [id number] - [id number] Start: 04-12-2024 Goals Date Patient Goal Desired Activity /State Personal health goal Comment on above: Formatting of this n ote might be different from the original. Evaluation of progress towards goal: SNF Personal health goal Comment on above: Formatting of this n ote might be different from the original. Evaluation of progress towards goal: home/self care with supportive spouse Clinical Notes 11-30-2020 to 07-22-2024 Milagros Baldwin DO - 07/22/2024 10:19 AM Damaris Baldwin DO - 07/22/2024 9:45 AM EDTTelephone Encounter - Jessica Fulton RN - 07/18/2024 4:10 PM EDT Note Date & Type Note Facility 07-22-2024 History of Present illness Narrative Associated Problem(s): Type 2 diabetes mellitus with other circulatory complications (CMS/HCC) During the appointment today all pertinent labs, imaging, health maintenance, and glucose readings were reviewed. Encouraged to check blood glucose throughout the day with some fasting and some PP readings. They are to bring their glucose meter/cgm in to all appointments. All of the patients questions, treatment options, and current care plan and goals were discussed. A copy of this along with pertinent instructions were given to the patient at the end of the appointment. The patient voices understanding of all of this and is to call in between appointments if they have any problems or questions. Mariely Wallace is doing very well and encouraged on this. , Will stay on current medications. Images from the original note were not included. Mariely Wallace is a 58 y.o. male presents with chief complaint of Diabetes HPI: Diabetes Mellitus Follow-up: Mariely Wallace is here for follow-up evaluation of diabetes mellitus. The initial diagnosis of diabetes was made in 2007 Diabetes complications: cerebrovascular disease He has been checking his blood glucose once a day in the morning Last A1c: 7.9 on 01/21/2024 Last eye exam: 11/04/2022 Current concerns include: Sates his bg levels are similar to last visit He stopped metformin in November to see if ozempic was working well alone. Diet: limiting carbs, smaller portions Drinks: green tea, coffee, water Exercise: none Hypoglycemia: none Asking for labs for HIV check and medication for preventive HIV as him and his partner invite others to engage in sex with them. SUBJECTIVE: PROBLEM LIST SOCIAL ALLERGIES: Patient Active Problem List Diagnosis Acute left-sided low back pain with left-sided sciatica Benign prostatic hyperplasia with lower urinary tract symptoms Erectile dysfunction Essential hypertension (CMS/HCC) Patent foramen ovale Penile pain Pure hypercholesterolemia (CMS/HCC) Type 2 diabetes mellitus with other circulatory complications (CMS/HCC) History of CVA (cerebrovascular accident) Venous insufficiency Generalized anxiety disorder (CMS/HCC) Induratio penis plastica Obstructive sleep apnea Social History Tobacco Use Smoking status: Every Day Current packs/day: 1.00 Average packs/day: 1 pack/day for 40.8 years (40.8 ttl pk-yrs) Types: Cigarettes Start date: 1983 Smokeless tobacco: Never Substance Use Topics Alcohol use: Yes Comment: Monthly or less Drug use: Never Allergies Allergen Reactions Clopidogrel Rash Synopsis [facility] 07/22/2024 Antidiabetic medications metFORMIN HCl 1,000 mg BID PO -Discontinued No sig Semaglutide 1 mg Weekly SC No sig Labs MHPT A1C 7.1 Outpatient prescription Medication marked as long-term REVIEW OF SYMPTOMS: Review of Systems Constitutional: Negative for appetite change, fatigue and unexpected weight change. Eyes: Negative for visual disturbance. Respiratory: Negative for cough, shortness of breath and wheezing. Cardiovascular: Negative for chest pain, palpitations and leg swelling. Neurological: Negative for numbness. Endocrine: Negative for polydipsia, polyphagia and polyuria. OBJECTIVE: 07/22/2024 9:45 AM 01/21/2024 10:24 AM 12/17/2023 9:04 AM Vitals BMI 31.92 kg/m2 32.81 kg/m2 33.56 kg/m2 Systolic 122 116 120 Diastolic 78 80 76 Heart Rate 80 72 87 Temp 98.4 F 98.5 F 98.1 F Height (in) 5' 8.5 5' 8.5 5' 8.5 Weight (lb) 213 219 224 Visit Report Report Report Report Physical Exam Constitutional: General: He is not in acute distress. Appearance: Normal appearance. Cardiovascular: Rate and Rhythm: Normal rate and regular rhythm. Heart sounds: No murmur heard. No friction rub. No gallop. Pulmonary: Breath sounds: Normal breath sounds. No wheezing, rhonchi or rales. Musculoskeletal: General: No swelling. Neurological: Mental Status: He is alert. ASSESSMENT AND PLAN: Problem List Items Addressed This Visit Benign prostatic hyperplasia with lower urinary tract symptoms Essential hypertension (CMS/HCC) Pure hypercholesterolemia (CMS/HCC) Type 2 diabetes mellitus with other circulatory complications (CMS/HCC) During the appointment today all pertinent labs, imaging, health maintenance, and glucose readings were reviewed. Encouraged to check blood glucose throughout the day with some fasting and some PP readings. They are to bring their glucose meter/cgm in to all appointments. All of the patients questions, treatment options, and current care plan and goals were discussed. A copy of this along with pertinent instructions were given to the patient at the end of the appointment. The patient voices understanding of all of this and is to call in between appointments if they have any problems or questions. Mariely Wallace is doing very well and encouraged on this. , Will stay on current medications. Relevant Orders POCT glycosylated hemoglobin (Hb A1C) docked device (Completed) Microalbumin / creatinine urine ratio History of CVA (cerebrovascular accident) Generalized anxiety disorder (CMS/HCC) Obstructive sleep apnea - Primary Other Visit Diagnoses Preventative health care Relevant Orders Comprehensive metabolic panel Lipid panel TSH CBC and differential Screening for prostate cancer Relevant Orders PSA High risk homosexual behavior Relevant Orders HIV 1/2 antibodies, rapid Ambulatory referral to Infectious Disease Will refer to infectious disease to discuss about preventative medication for HIV. I am not very familiar with these medications and would feel more comfortable with him seeing infectious disease for this. Follow up in about 6 months (around 01/20/2025) for Recheck. Patient's Medications New Prescriptions No medications on file Previous Medications ASPIRIN 81 MG CHEWABLE TABLET Chew 81 mg in the morning. ATORVASTATIN (LIPITOR) 80 MG TABLET Take 1 tablet (80 mg) by mouth Daily FLUOXETINE (PROZAC) 20 MG CAPSULE Take 1 capsule (20 mg) by mouth Daily ONETOUCH VERIO TEST STRIP USE TO TEST FASTING BLOOD SUGAR 2 TIMES DAILY SEMAGLUTIDE (OZEMPIC, 1 MG/DOSE,) 4 MG/3ML SOLUTION PEN-INJECTOR Inject 1 mg under the skin 1 (one) time per week Modified Medications No medications on file Discontinued Medications METFORMIN XR (GLUCOPHAGE-XR) 500 MG 24 HR TABLET Take 2 tablets (1,000 mg) by mouth in the morning and 2 tablets (1,000 mg) before bedtime. I have reviewed and reconciled the history and medication list with the patient today. documented in this encounter [facility] 07-18-2024 Miscellaneous Notes Per July 2024 recall, patient needs routine follow-up with Dr. Berg. Please call to schedule patient. Called patient and left VM Called patient and left VM Went straight to voicemail which was full. Spoke with patient and he said he was currently driving. He said he'd call the office tomorrow Spoke with patient and scheduled appt documented in this encounter [facility] 07-18-2024 Telephone encounter Note Per July 2024 recall, patient needs routine follow-up with Dr. Berg. Please call to schedule patient. [facility] 07-18-2024 Telephone encounter Note Called patient and left VM [facility] 07-18-2024 Telephone encounter Note Called patient and left VM Went straight to voicemail which was full. [facility] 07-18-2024 Telephone encounter Note Spoke with patient and he said he was currently driving. He said he'd call the office tomorrow [facility] 07-18-2024 Telephone encounter Note Spoke with patient and scheduled appt [facility] 03-08-2024 Note [facility] Cardiology Clinic Note Chief Complaint: New patient here to establish care. Ref from Dr. Gooden for clearance prior to left carotid subclavian bypass surgery. He had echo and EKG last week at [facility]. He thinks he may have had a heart cath a long time ago at [facility]. Current 1 PPD smoker. He denies chest pain, SOB, and palpitations. Hx of CVA. HPI: Mariely Wallace II is a 58 y.o. male With a history of hypertension, dyslipidemia, peripheral arterial disease and smoking who presents today for preoperative evaluation He was found to have significant carotid stenosis after suffering a stroke in November. He currently sees vascular surgery and will be scheduled for carotid surgery. He denies exertional chest pain or shortness of breath however ambulation is limited due to right calf claudication. He had discomfort walking to the cafeteria this morning. No orthopnea, no paroxysmal tunnel dyspnea, no lower extremity edema. He had a cardiac catheterization many years ago. He denies any recent stress test. PMHx: HTN, dyslipidemia, DM type II, PAD Cardiology ROS: Review of Systems Cardiovascular: Positive for claudication. Neurological: Positive for dizziness and light-headedness. All other systems reviewed and are negative. Past Medical History He has no past medical history on file. Surgical History He has no past surgical history on file. Social History He has no history on file for tobacco use, alcohol use, and drug use. Family History No family history on file. Allergies Patient has no allergy information on record. Medications No current outpatient medications on file. Last Recorded Vitals BP 132/86 (BP Location: Right arm, Patient Position: Sitting) Pulse 74 Ht 1.753 m (5' 9 ) Wt 88.5 kg (195 lb) SpO2 98% BMI 28.80 kg/m??? Physical Examination: GENERAL: alert and oriented x3, well developed, in no acute distress. HEAD: atraumatic, normocephalic. EYES: MIKEY, EOMI. NECK: trachea midline, no JVD present, no carotid bruits present. CARDIAC: S1, S2 present. RRR. No murmur, rubs, or gallops. RESPIRATORY: CTAB, no increased effort of breathing, no rales, rhonchi, or wheezing. ABDOMEN: soft, nontender, nondistended. EXTREMITIES: no lower extremity edema, peripheral pulses are 2+ bilaterally. No rash/skin discoloration present. NEURO: strength/sensation equal and symmetric in bilateral upper and lower extremities. PSYCH: appropriate mood, affect, and judgement. Investigations: Electrocardiogram 03/03/2024: Sinus rhythm, moderate intraventricular conduction delay. Echocardiogram 02/2024: Global left ventricular systolic function is normal; visually estimated ejection fraction is 60 to 65%. Normal right ventricular size and systolic function. Normal diastolic function. Mildly increased left ventricular wall thickness. No significant valvular abnormalities. Assessment: Preoperative evaluation FH of premature CAD Smoker Dyslipidemia Hypertension Diabetes mellitus type 2 Peripheral arterial disease with claudication Carotid artery stenosis, with h/o stroke Dizziness Plan: Given his claudication, I am unable to assess his physical tolerance appropriately; I recommended proceeding with a Lexiscan pharmacological stress test in view of his multiple risk factors for atherosclerotic heart disease as well as documented peripheral arterial disease. Should this show no ischemia and no high risk findings, he would be at acceptable risk to proceed with no further cardiovascular testing. Recommend strict heart rate and blood pressure control and avoidance of major fluid shifts perioperatively. If there is significant ischemia, he will require invasive coronary angiography prior to any planned surgery. Continue aggressive cardiovascular risk factor modification Further recommendations pending the results of his stress test. Jani Manning MD, MPH, FACC, [facility], [facility] Interventional Cardiology Pager Email: [email or web address] 12-30-2023 Miscellaneous Notes Patient called and asked for a letter for his work stating that he is currently unable to work. He asked to have the letter mailed to him at [address] [place] [address] If you have any questions for the patient he can be reached at [phone] Letter completed. Please mail to patient. Mailed to the address below. documented in this encounter [facility] 12-30-2023 Telephone encounter Note Patient called and asked for a letter for his work stating that he is currently unable to work. He asked to have the letter mailed to him at [address] [place] [address] If you have any questions for the patient he can be reached at [phone] [facility] 12-30-2023 Telephone encounter Note Letter completed. Please mail to patient. [facility] 12-30-2023 Telephone encounter Note Mailed to the address below. [facility] 12-28-2023 Miscellaneous Notes Patient called to inform clinical staff someone will be faxing over disability paperwork for clinical staff to fill out. Makeup Instructor provided clinical fax number ([phone]) and requested name of company faxing paperwork over to keep an eye out. Patient stated they are not entirely sure the name of the company, but stated it will have their name and Dr Berg's name on it. Patient requested a return call once form in received. documented in this encounter [facility] 12-28-2023 Telephone encounter Note Patient called to inform clinical staff someone will be faxing over disability paperwork for clinical staff to fill out. Makeup Instructor provided clinical fax number ([phone]) and requested name of company faxing paperwork over to keep an eye out. Patient stated they are not entirely sure the name of the company, but stated it will have their name and Dr Berg's name on it. Patient requested a return call once form in received. [facility] 12-15-2023 Miscellaneous Notes Please fax patients : referral for OT and PT and OVN To: [facility] Fax #:[phone] Phone #:[phone] ext. [phone] Who is calling: Zina Late encounter due to technical difficulties: Faxed included information to [phone] on 12/23/23 at 12:23 - demographics - Ambulatory referral to Occupational Therapy (Order # [id number]) on 12/12/2023 - Ambulatory referral to Physical Therapy (Order # [id number]) on 12/12/2023 - 12/03/23 Discharge Notes including History , Care Plan , and Detailed Report documented in this encounter [facility] 12-15-2023 Telephone encounter Note Please fax patients : referral for OT and PT and OVN To: [facility] Fax #:[phone] Phone #:[phone] ext. [phone] Who is calling: Zina [facility] 12-15-2023 Telephone encounter Note Late encounter due to technical difficulties: Faxed included information to [phone] on 12/23/23 at 12:23 - demographics - Ambulatory referral to Occupational Therapy (Order # [id number]) on 12/12/2023 - Ambulatory referral to Physical Therapy (Order # [id number]) on 12/12/2023 - 12/03/23 Discharge Notes including History , Care Plan , and Detailed Report [facility] 11-09-2023 Evaluation note Encounter Date Diagnosis Assessment [...] once the full functional duplex is completed. [facility] Other 02-19-2021 NoteHNO ID: [id number] Author: Esteban Lazcano Service: ? Author Type: [...] minutes with greater than 50% of time [id number] counseling. Esteban Lazcano [facility] noteNo assessment information availableGreen Cross Hospital Work Phone: Evaluation note* Diagnosis Obstructive sleep apnea- Primary Obstructive sleep apnea (adult) (pediatric) Type 2 diabetes mellitus with other circulatory complications (CMS/HCC) Essential hypertension (CMS/HCC) Unspecified essential hypertension Benign prostatic hyperplasia with urinary frequency Pure hypercholesterolemia (CMS/HCC) Pure hypercholesterolemia History of CVA (cerebrovascular accident) Transient ischemic attack (TIA), and cerebral infarction without residual deficits Generalized anxiety disorder (CMS/HCC) Generalized anxiety disorder Preventative health care Routine general medical examination at a health care facility Screening for prostate cancer Special screening for malignant neoplasm of prostate High risk homosexual behavior documented in this encounter [facility] N[facility]ative - Reported* Type Description Date Medical History Diabetes Medical History hyperlipidemia Medical History Stroke Medical History hypertension Surgical History tonsillectomy and adenoidectomy Surgical History carpal tunnel release bilat Surgical History ACL replacement right knee Hospitalization History see above Hospitalization History Stroke [facility] Other InstructionsNot on filedocumented in this encounter [facility] filedocumented in this encounter [facility]ructionsNot on filedocumented in this encounter [facility]ructionsNot on filedocumented in this encounter [facility] for referral (narrative)* Consultation (Routine) - Pending Review Specialty Diagnoses / Procedures Referred By Jairon abebe Referred To Contact Infectious Diseases Diagnoses High risk homosexual behavior Procedures ME OFFICE/OUTPATIENT NEW HIGH MDM 60 MINUTES Milgaros Baldwin DO [address] [place] [address] Rod Carlton MD [address] [place] [address] Referral ID Status Reason Start Date Expiration Date Visits Requested Visits Authorized [id number] Pending Review Specialty Services Required 01/18/2025 1 1 [facility] Summary Purpose Family History No Family History Records FoundNo Family History Records FoundNo Family History Records FoundNo Family History Records FoundNo Family History Records FoundNo Family History Records FoundNo Family History Records Found Advance Directives Advance Directive Response Recorded Date/ Time Advance Directives No August 1:49pm Latest Code Status on File Code Status Date Activated Date Inactivated Comments Full Code 12/03/2023 2:13 AM 12/12/2023 6:49 PM Date Activated Date Inactivated Comments 12/03/2023 2:13 AM 12/12/2023 6:49 PM Chief Complaint and Reason for Visit Chief Complaint S70.02XA Additional Source Comments (unrecognized sect ion and content) No Status Records FoundNo Status Records FoundNo Status Records FoundNo Status Records FoundNo Status Records FoundNo Status Records FoundNo Status Records Found INFORMATION SOURCE (unrecogn ized section and content) DATE CREATED AUTHOR 11/03/2021 [facility] DATE CREATED AUTHOR AUTHOR'S ORGANIZ ATION 12/09/2021 [facility] Specialist DATE CREATED AUTHOR AUTHOR'S ORGANIZ ATION 01/12/2023 [facility] DATE CREATED AUTHOR AUTHOR'S ORGANIZ ATION 01/25/2023 [facility] DATE CREATED AUTHOR AUTHOR'S ORGANIZ ATION 11/20/2023 [facility] DATE CREATED AUTHOR AUTHOR'S ORGANIZ ATION 04/05/2024 [facility] DATE CREATED AUTHOR AUTHOR'S ORGANIZ ATION 07/24/2024 [facility] dical Specialists EPIC Care Teams (unrecognized sec tion and content) Team Status: Active Member Role Status Dates Milagros MartinoDO kelly Primary Care Provider Active Team Status: Inactive Member Role Status Dates Milagros Baldwin DO Primary Care Provider Active Fito Matta Jr, DO Attending Provider Active Manager Group Home Relationship Specialty Start Date End Date Milagros Baldwin DO [address] [place] [address] PCP - General Family Medicine 12/03/23 Manager Group Home Relationship Specialty Start Date End Date Milagros Baldwin DO [address] [place] [address] PCP - General Family Medicine 12/03/23 Manager Group Home Relationship Specialty Start Date End Date Milagros Baldwin DO [address] [place] [address] PCP - General Family Medicine 05/07/23 Manager Group Home Relationship Specialty Start Date End Date Milagros Baldwin DO [address] [place] [address] PCP - General Family Medicine 05/07/23 Manager Group Home Relationship Specialty Start Date End Date Milagros Baldwin DO PCP - General Family Medicine 12/03/23 Goals (unrecognized section and content) Goals may be documented in a n alternate sectionNo Information REASON FOR VISIT (unrecogniz ed section and content) Reason Onset Date Comments fax 12/15/2023 Reason Onset Date Comments disability paperwork 12/28/2023 Reason Onset Date Comments Letter for School/Work 12/30/2023 Reason Comments Diabetes FOR RECORDS PERTAINING TO PATIENTS WHO ARE [...] THE PRIMARY CLINICAL RECORDS. [facility] [employer] [facility]. provides no warranty or guarantee of the accuracy or completeness of information in this document.
[2024-08-04 06:56] LABS: Basophils Absolute Auto 0.2 10^3/uL (0.0-0.1); Basophils Percent Auto 1.4 % (0.2-2.0); Eosinophils Absolute Auto 0.4 10^3/uL (0.0-0.7); Hematocrit 44.4 % (42.0-54.0); Hemoglobin 15.1 g/dL (14.0-18.0); Immature Granulocytes Abs Auto 0.01 10^3/uL (0.00-0.03); Immature Granulocytes Pct Auto 0.1 % (0.0-0.5); Lymphocytes Percent Auto 28.4 % (20.5-60.0); Mean Corpuscular Hemoglobin 28.9 pg (25.9-34.0); Mean Corpuscular Volume 85.1 fL (80.0-94.0); Mean Platelet Volume 9.5 fL (9.5-13.5); Monocytes Absolute Auto 0.8 10^3/uL (0.3-0.8); Monocytes Percent Auto 7.6 % (1.7-12.0); Neutrophils Absolute Auto 6.2 10^3/uL (1.4-6.5); Neutrophils Percent Auto 58.5 % (43.0-75.0); Platelet Count 283 10^3/uL (150-450); Red Blood Count 5.22 10^6/uL (4.70-6.10); Red Cell Distribution Width 12.2 % (11.0-15.0); White Blood Count 10.6 10^3/uL (4.0-11.0)
[2024-08-04 07:53] LABS: Creatinine Urine Random 205.05 mg/dL (20.00-300.00); Microalbumin Urine Random <1.3 mg/dL (<=30.0)
[2024-08-04 08:02] LABS: Prostate Specific Antigen Scrn 0.63 ng/mL (<=4.00)
[2024-08-04 08:24] LABS: Alanine Aminotransferase 20 U/L (16-63); Albumin Level 3.5 g/dL (3.4-5.0); Alkaline Phosphatase 87 U/L (46-116); Anion Gap 15.1; Aspartate Amino Transferase 17 U/L (15-37); Bilirubin Total 0.5 mg/dL (0.2-1.0); Chloride 105 mmol/L (98-107); Chol HDL Ratio 2.7; Cholesterol 110 mg/dL (<=200); Estimated GFR (African America >60 (>=60 mL/min/1.73m^2); Estimated GFR (Non-African Ame >60 (>=60 mL/min/1.73m^2); Globulin 3.6 g/dL; Glucose 144 mg/dL (74-106); HDL Cholesterol 41 mg/dL (40-60); LDL Cholesterol Calculated 54.4 mg/dL; Potassium 4.1 mmol/L (3.5-5.1); Sodium 140 mmol/L (136-145); Thyroid Stimulating Hormone 2.016 uIU/mL (0.358-3.740); Total Protein 7.1 g/dL (6.4-8.2); Triglycerides 73 mg/dL (<=150); VLDL CHOLESTEROL 14.6 mg/dL
== END 2024-08-04 06:34 | disposition home or self-care (01) ==
LOC: LAB 06:34
PROVIDERS: PCP Family Medicine; Visit Provider Family Medicine
DX: Z00.00 Encounter for general adult medical examination without abnormal findings (principal); E11.59 Type 2 diabetes mellitus with other circulatory complications; Z12.5 Encounter for screening for malignant neoplasm of prostate
CPT/HCPCS: 36415; 80053; 80061; 82043; 82570; 84443; 85025; G0103

== ENCOUNTER 2024-09-26 14:32 | Outpatient (OUT) | payer OTHER, SELFPAY ==
--- NOTE | 2024-09-26 14:38 | US_ITS ---
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 TECHNIQUE: Duplex Doppler ultrasound analysis of carotid and vertebral arteries. . Bilateral carotid arterial duplex examination was performed using B-mode, color flow and spectral analysis. Carotid stenosis is reported according to validated velocity parameters, similar to NASCET criteria. FINDINGS: RIGHT CAROTID ARTERY Moderate atherosclerotic plaque Subclavian: 118.88 cm/s / 5.81 cm/s CCA: Prox: 93.01 cm/s / 18.73 cm/s Mid: 105.93 cm/s / 25.19 cm/s Distal: 105.93 cm/s / 21.96 cm/s BULB: 62.84 cm/s / 16.29 cm/s ICA: Prox: 71.96 cm/s / 30.54 cm/s Mid: 86.19 cm/s / 38.31 cm/s Distal: 99.50 cm/s / 41.35 cm/s ECA: 70.60 cm/s / 21.46 cm/s VERTEBRAL: 73.18 cm/s / 25.34 cm/s, antegrade ICA/CCA ratio: 0.9 LEFT CAROTID ARTERY moderate atherosclerotic plaque Subclavian: 172.5 cm/s / 13.7 cm/s CCA: Prox: 183.95 cm/s / 15.84 cm/s Mid: 94.41 cm/s / 29.37 cm/s Distal: 75.84 cm/s / 17.60 cm/s BULB: 84.98 cm/s / 18.74 cm/s ICA: Prox: 61.60 cm/s / 22.78 cm/s Mid: 86.19 cm/s / 38.31 cm/s Distal: 79.72 cm/s / 33.13 cm/s ECA: 74.54 cm/s / 11.13 cm/s VERTEBRAL: 64.19 cm/s / 22.78 cm/s , antegrade ICA/CCA ratio: 0.9 Left carotid graft US/US carotid duplex BI IMPRESSION: Elevated flow velocities in the left subclavian and proximal common carotid artery 0-49% flow stenosis bilateral internal carotid arteries Spectral Doppler US Thresholds (Reference: Juan EG, et al. Radiology 2000; 214:247-252) Stenosis (%) PSV (cm/sec) VICA/VCCA 0-49 <150 <2.5 50-69 150-225 2.5-4.0 >70 >225 >4.0 Electronically authenticated by: JUSTIN BELTRAN Date: 09/27/2024 07:14
== END 2024-09-26 14:33 | disposition home or self-care (01) ==
LOC: US 14:32
PROVIDERS: PCP Family Medicine; Visit Provider Student in an Organized Health Care Education/Training Program
DX: G45.0 Vertebro-basilar artery syndrome (principal); F17.210 Nicotine dependence, cigarettes, uncomplicated
CPT/HCPCS: 93880

== ENCOUNTER 2025-03-27 13:51 | Outpatient (OUT) | payer OTHER, SELFPAY ==
--- OUTSIDE RECORDS SUMMARY | 2025-03-27 13:57 | XMS_ITS | Encounter Summary ---
Author Organization [facility] Address [id number] [address] [place] [address] Care Team Providers Care Personal Loan Specialist Name Role Phone Milagros Rod DO Primary Care Provider [phone]- [phone] Encounter Details Date Type Department Care Team (Late st Contact Info) Description 12/08/2023 Telephone [facility] Pulmonary/Sleep Medicine [address] [address] Frannie Sibley, NURSING AIDE-PUBLIC TRANSIT TROLLEY DRIVER [address] [id number] Social History Tobacco Use Types Packs/Day Years Used Date Smoking Tobacco: Every Day Cigarettes 1 41.5 Started: 1984 Smokeless Tobacco: Never Alcohol Use Standard Drinks/Week Comments Yes 0 (1 standard drink = 0.6 oz pur e alcohol) [facility] Utilities Answer Date Recorded In the past 12 months has [employer], [employer], oil, or water [employer] threatened to shut off services in your home? No 12/03/2023 AUDIT-C Answer Date Recorded Q1: How often do you have a drink containing alc ohol? 2-3 times a week 12/03/2023 Q2: How many drinks containi ng alcohol do you have on a typical day when you are drinking? 1 or 2 12/03/2023 Q3: How often do you have si x or more drinks on one occasion? Never 12/03/2023 PHQ-2 Answer Date Recorded Total Score 0 12/03/2023 PRAPARE - Transportation Answer Date Re corded In the past 12 months, has l ack of transportation kept you from medical appointments or from getting medications? No 11/13 In the past 12 months, has l ack of transportation kept you from meetings, work, or from getting things needed for daily living? No 12/03/2023 Housing Instability Answer Date Recorde d Are you worried or concerned that in the next two months you may not have stable housing that you own, rent or stay in as a part of a household? No 12/03/2023 Hunger Screening Answer Date Recorded Within the past 12 months we worried whether our food would run out before we got money to buy more. Never True 12/03/2023 Within the past 12 months th e food we bought just didn't last and we didn't have money to get more. Never True 12/03/2023 Sex and Gender Information Value Date Recorded Sex Assigned at Not on file Legal Sex Male 10:03 PM EST Gender Identity Not on file Sexual Orientation Not on file documented as of this encounter Mental Status * Question Answer Entry Date Author Overall Cognitive Status X 12/11/2023 3:47 PM EST Irina Huang OTA/Cheikh documented in this encounter Miscellaneous Notes * Telephone Encounter - VIPIN Theodore - 12/08/2023 10:16 AM EST PSG and PFTs and follow up in [place], not yet d/c but we are signing off. Thanks! * Telephone Encounter - Daily Patrick RN - 12/08/2023 10:16 AM EST Pt to call office to schedule HDFU documented in this encounter Plan of Treatment Not on file documented as of this encounter Goals Goal Patient Goal Type Associated Problems Recent Progress Patient-Stated? Author <enter goal here> General Yes Aracelis Crawford LSW Note: Evaluation of progress towards goal: SNF documented as of this encounter Visit Diagnoses Not on filedocumented in this encounter Additional Health Concerns Assessment Noted Time PHQ-9 Depression Total Score: 0 12/03/19 1:32 PM EST documented as of this encounter Care Teams Personal Loan Specialist Relationship Specialty Start Date End Date Milagros Rod DO PCP - General Family Medicine 12/03/23 documented as of this encounter
--- OUTSIDE RECORDS SUMMARY | 2025-03-27 13:58 | XMS_ITS | Clinical Summary ---
Author Organization [facility] Address [address] [place] [address] Phone Care Team Providers Care Road Roller Engineer Name Role Phone Unavailable Primary Care Provider Unavailabl e Social History Tobacco Use Types Packs/Day Years Used Date Smoking Tobacco: Never Assessed Sex and Gender Information Value Date Recorded Sex Assigned at Not on file Legal Sex Male 9:12 PM EST Gender Identity Not on file Sexual Orientation Not on file Plan of Treatment Not on file
--- OUTSIDE RECORDS SUMMARY | 2025-03-27 13:58 | XMS_ITS | Encounter Summary ---
Author Organization [employer] [facility] Address [id number] [address] [place] [address] Care Team Providers Care Veneer Taping Machine Offbearer Name Role Phone Milagros Rod DO Primary Care Provider +1- [phone] Reason for Visit * Reason Onset Date Comments Care Navigation 01/25/2024 Encounter Details Date Type Department Care Team (Late st Contact Info) Description 01/25/2024 Telephone [facility] Neurology [address] [place] [address] Brandy Lucero, RN Care Navigation Social History Tobacco Use Types Packs/Day Years Used Date Smoking Tobacco: Every Day Cigarettes 1 41.5 Started: 1983 Smokeless Tobacco: Never Alcohol Use Standard Drinks/Week Comments Not Currently 0 (1 standard drink = 0.6 oz pur e alcohol) [facility] Utilities Answer Date Recorded In the past 12 months has PT PAL, gas, oil, or water [employer] threatened to shut off services in your [...] 12/03/2023 PHQ-2 Answer Date Recorded Total Score 8 01/20/2024 PRAPARE - Transportation Answer Date Re corded [...] got money to buy more. Never True 01/20/2024 Within the past 12 months th e food we bought just didn't last and we didn't have money to get more. Never True 01/20/2024 Sex and Gender Information Value Date Recorded Sex Assigned at Not on file Legal Sex Male 10:03 PM EST Gender Identity Not on file Sexual Orientation Not on file documented as of this encounter Miscellaneous Notes * Telephone Encounter - Brandy Lucero RN - 01/25/2024 2:13 PM EDT Contact Type: Direct contact - Phone call with patient - general Reason For Call: Neurology Care Navigation Update Assessment: Patient is going through PT/OT. He reports continued Left arm weakness and being uncoordinated, balance is off but getting better little by little. Patient is off work 4-6 months to work on getting stronger. Patient has short term disability through work. 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 Patient's bills are paid up for now. Patient has been in contact with [employer] companies regarding the situation and they are willing to work with[employer] for now. Patient states he was cleared to drive at this last appointment and patient drove totherapy and knows he needs to be careful with his left arm because if it is on the steering wheel it will pull it down. Patient currently has medical insurance. He has food supply. Patient's job duties include walking 8 flights of stairs and lifting 50- 80#. His employer has a strict no light duty policy. Patient states if he does not regain the strength in his left arm, he will not be able to work. Patient has decreased his coffee intake to 1/4 pot and is drinking green tea. His PCP increased his ozempic dosage from one injection a week to two injections a week. Patient is following a healthydiet. Patient states he is working on quitting smoking. Intervention: CN called patient and received an update. CN provided patient with [employer] 2-1-1[employer] for utility assistance. Patient states he is aware of local food [employer]. Patient will call CNfor any future resource needs. Right now patient would like to call CN if he needs anything. CN will be available for his calls/needs. Questions: None documented in this encounter Plan of Treatment Not on file documented as of this encounter Goals Goal Patient Goal Type Associated Problems Recent Progress Patient-Stated? Author <enter goal here> General Yes Aracelis Crawford, KAMILA Note: Evaluation of progress towards goal: SNF documented as of this encounter Visit Diagnoses Not on filedocumented in this encounter Additional Health Concerns Assessment Noted Time PHQ-9 Depression Total Score: 8 01/20/20 24 2:15 PM EDT documented as of this encounter Care Teams Veneer Taping Machine Offbearer Relationship Specialty Start Date End Date Milagros Rod DO PCP - General Family Medicine 12/03/23 documented as of this encounter
--- OUTSIDE RECORDS SUMMARY | 2025-03-27 13:58 | XMS_ITS | Encounter Summary ---
[facility] Address [facility] [id number] [address] [place] [address] Care Team Providers Care Floral Associate Name Role Phone Milagros Rod DO Primary Care Provider +1- [phone] Reason for Visit * Reason Onset Date Comments Care Navigation 12/16/2023 Encounter Details Date Type Department Care Team (Late st Contact Info) Description 12/16/2023 Telephone [facility] Neu[facility] [address] [place] [address] Brandy Lucero, RN Care Navigation Social History Tobacco Use Types Packs/Day Years Used Date Smoking Tobacco: Every Day Cigarettes 1 41.5 Started: 1984 Smokeless Tobacco: Never Alcohol Use Standard Drinks/Week Comments Yes 0 (1 standard drink = 0.6 oz pur e alcohol) [facility] Utilities Answer Date Recorded In the past 12 months has [place], gas, oil, or water [employer] threatened to shut off services in your [...] Telephone Encounter - Brandy Lucero RN - 12/16/2023 10:20 AM EST Contact Type: Direct contact - Phone call with patient - general Reason for Call: CN introduction. Assessment-58 y.o. White or male with past medical history significant for diabetes mellitus, KERRY, nicotine use, and previous CVA who initially presented to [place] ED with left-sided weakness. His noncontrast CT brain was negative for acute pathology. Vessel imaging was concerning for right ICA and right vertebral artery occlusion. He was outside the window for thrombolytic therapy. Mariely was transferred to [facility] for higher level care. On admission to [facility], his NIHSS worsened prompting him to undergo diagnostic cerebral angiogram and thrombectomy of right ICA terminus occlusion. He was then admitted to neuro intensive care unit for further stroke workup. His stroke workup included MRI of the brain, echocardiogram hemoglobin A1c and lipid profile. His MRI of the brain demonstrated right watershed zone ischemic stroke. His echocardiogram revealed an ejection fraction of 55-60% with no left atrial dilation or LV thrombus. Bubble study did demonstrate [id number] PFO. His hemoglobin A1c resulted at 7.5. His lipid profile demonstrated an LDL of 119.He was started on aspirin and statin. Patient reports Left sided weakness is the same. Patient states this is his second stroke. Hoping that PT/OT will help with that. He is hoping that once he gets more active, his HGBA1C will decrease.Patient is taking medications as ordered. Groin site is not tender and no longer bruised. Patient denies any signs of infection. Patient has not checked his blood pressure. He states he used to have a blood pressure machine but would have to look for it. He will start checking his blood pressure once he locates the machine. Patient has reduced his coffee intake from 36 cups per day to 1/2 pot a day. He is working on transitioning to green tea. Patient was successful in cutting out candy and fast food. Patient has not smoked this morning. Patient tried nicotine gum that he feels helped a little bit. He has tried hypnosis in the past and states it did not work. Patient does experience cravings and will discuss with PCP tomorrow about that. Patient is not driving and his ex- is arranging transportation. Patient uses his 4 prong cane and has adapted to his balance issues since his firststroke. Patient feels that he does not need the 2 wheeled walker that was ordered. Patient states the event monitor has been arranged. Type of Stroke: R watershed zone ischemic stroke. Thrombectomy Diagnostic Cerebral Angiogram. R ICAterminus occlusion Date of Hospitalization: 12/03/2023-12/12/2023. New Medications: ASA and Lipitor. Medication Issues: None. Anticoagulation: ASA. Labs: none Testing: none. Equipment: 2 wheeled walker ordered but patient does not feel he needs it. He has 4 prong cane at home and feels stable with that. Event monitor 12/28/2023 Home Care: none Outpatient Therapy: PT/OT- patient has scheduled Driving: No Follow Up Appointments: PCP 12/17/2023 Neuro 01/20/2024 Cardio- has one in [place]. Patient to ask about PFO and structural heart Pulm- patient is going to ask PCP Support: ex and . Financial Concerns: Has food supply at home. Is working on getting STD paperwork from employer. Right now utilities are working and on. Transportation Concerns: ex- is helping arrange transportation. Patient current has transportation arranged for his appts Plan/Goals: continue to take medications as ordered. Locate blood pressure monitor and start checking blood pressure. Keep follow up appointments. Continue to reduce coffee intake and continue on smoking cessation. Discuss with PCP tomorrow about smoking cessation and cravings and treatment options. Intervention: CN called patient and received an update. CN mailed Neuro appt reminder to verified address per patient request. CN called [facility] and was given the phone number to [employer] for transporation [phone]. CN left message for return call. [employer] returned call. They can provide transport services for local grocery store and pharmacy. Cost is $[address] Can pay tavarez or check. They would need 24 hr notice. Trips for medical appts would be out of pocket. [place] would be $25 and [place] $60. CN called [employer] insurance and transportation services is not part of patient's benefits. A Pre-determination letter for transportation reimbursement can be faxed to their Pre-determination litigation support analyst at [phone]. Turnaround time is 3-5 calendar days. Enrolled in Care Navigation CN called patient and informed on [employer]. Patient took number down. Patient also said his exwife andhis are able to drive him to appts. Questions: none Education: CN reviewed blood pressure parameters- patient has handout at home [facility] Education Provided: CN reviewed acronym and symptoms. . Balance (Loss of Balance, Headache, Dizziness), Eyes (Abrupt Vision Changes), Face (Drooping), Arms (Numbness/Weakness Arms/Legs), Speech (Difficulty with Speech), Time (Call 911 Right Away). Patient Verbalizes Understanding. Modifiable Risk Factor Education/Stroke Prevention: CN did discuss risk factors: BP, DM, diet, activity. Quitting smoking.. CN provided direct line to call if any questions or concerns and if any new, returning or worseningsymptoms. Patient verbalized understanding. documented in this encounter Plan of Treatment [...] Time PHQ-9 Depression Total Score: 0 12/03/19 24 1:32 PM EST documented as of this encounter Care Teams Floral Associate Relationship Specialty Start Date End Date Milagros Rod DO PCP - General Family Medicine 12/03/23 documented as of this encounter
--- OUTSIDE RECORDS SUMMARY | 2025-03-27 13:58 | XMS_ITS | Clinical Summary ---
Author Organization [facility] Address [address] [place] [id number] Care Team Providers Care Financial Management Name Role Phone Diamond Valle DO Primary Care Provider Allergies Active Allergy Reactions Criticality Noted Date Comments Clopidogrel Itching 08/10/2020 Medications etodolac (LODINE) 400 mg ORAL tabletIndicati ons:Old disruption of anterior cruciate ligament,OA (osteoarthriti s) of knee 1 PO BID with food 60 Tab 3 0 Active Additional Information Patient not taking.Reason: Discontinued by Another Health Care Provider, Reported on 08/10/2020 semaglutide (OZEMPIC) 0.25 mg or 0.5 mg(2 mg/1.5 mL) pnij Inject 0.25 mg subcutaneously one time a week. Active lisinopril (PRINIVIL) 5 mg tablet Take 5 mg by mouth once daily. Active atorvastatin (LIPITOR) 80 mg tablet Take 80 mg by mouth once daily. Active metformin HCl (METFORMIN ORAL) Take 500 mg by mouth twice daily. Active finasteride (PROSCAR) 5 mg tablet Take 5 mg by mouth once daily. Active cyclobenzaprin e (FLEXERIL) 10 mg tablet Take 10 mg by mouth twice daily as needed. Active FLUoxetine HCl 20 mg tablet Take 20 mg by mouth once daily. Active sildenafil (VIAGRA) 100 mg tablet Take one tablet by mouth 1 hour prior to sexual activity. 15 tablet 2 0 Active Active Problems Problem Noted Date Diagnosed Date Fitting and adjustment of orthopedic device 08/12 Social History Tobacco Use Types Packs/Day Years Used Date Smoking Tobacco: Every Day Cigarettes 1.5 30 Smokeless Tobacco: Former Alcohol Use Standard Drinks/Week Comments Never 0 (1 standard drink = 0.6 oz pur e alcohol) AUDIT-C Answer Date Recorded Q1: How often do you have a drink containing alc ohol? Never 08/10/2020 Average Number of Drinks Not on file 020 Frequency of Binge Drinking Not on file 07/14 Area Deprivation Index Answer Date Mohan rded National Score (1-100), lower number is lower ri sk Not on file 09/17/2020 State Score (1-10), lower number is lower risk N ot on file 09/17/2020 Data from: https://www.neighborhoodatlas.medicine.[facility]/. Last address used for calculation Not on file 09/17/2020 Sex and Gender Information Value Date Recorded Sex Assigned at Not on file Legal Sex Male 9:33 AM EST Gender Identity Not on file Sexual Orientation Not on file Last Filed Vital Signs Vital Sign Reading Time Taken Comments Blood Pressure 150/80 11/30/2020 9:07 AM EST Pulse 82 11/30/2020 9:07 AM EST Temperature - - Respiratory Rate - - Oxygen Saturation 97% 11/30/2020 9:07 AM EST Inhaled Oxygen Concentration - - Weight 95.3 kg (210 lb) 11/30/2020 9:07 AM EST Height - - Body Mass Index - - Plan of Treatment Health Maintenance Due Date Last Done Comments Anxiety Screening 1982 Depression Screening 1982 HIV Screening 1982 Hepatitis C Screening 1982 DTaP,Tdap,Td Vaccine (1 - Tdap) [address] Colonography 2009 Cologuard (FIT-DNA) 2009 Colonoscopy 2009 Colorectal Cancer Screening 2009 Diabetes Screening 2009 Fecal Occult Blood 2009 Sigmoidoscopy 2009 Pneumococcal Vaccine: 50+ (1 of 1 - PCV) 2014 Shingrix Vaccine (1 of 2) 2014 Covid-19 Vaccine (1 - season) 2024 Influenza Vaccine (Season Ended) 2025 07/09/20 20, 07/05/2020 Prostate Cancer Screening Discussion 08/10/202507/14 RSV Vaccine (1 - 1-dose 75+ series) 2039 Procedures Procedure Name Priority Date/Time Associated Diagnosis Comments PSA/PROSTSPECAG SCRN Routine 08/10/2020 9:51 AM EDT Libido, decreased from Last 3 Months or Most Recently Relevant to Health Maintenance Results * PSA/PROSTSPECAG SCRN (08/10/2020 9:51 AM EDT) PSA Screening 0.30 0.00 - 2.59 ng/mL 08/10/2020 9:57 PM EDT [facility] Comment:Total PSA test metho dology used is the Electrochemiluminescence Immunoassay. Blood BLOOD SPECIMEN / Unknown 08/10/2020 9:51 AM EDT 08/10/2020 9:58 AM EDT Sarah Lazcano MD LABORATORY Final Result [facility] [address] [place] [address] [facility] [address] [place] [address] from Last 3 Months or Most Recently Relevant to Health Maintenance Insurance [employer] Care Teams Financial Management Relationship Specialty Start Date End Date Diamond Valle DO PCP - General Family Medicine 08/13/10
--- OUTSIDE RECORDS SUMMARY | 2025-03-27 13:58 | XMS_ITS | Clinical Summary ---
Author Organization [employer] Address [id number] [address] [place] [address] Care Team Providers Care Pyridine Recovery Operator Name Role Phone Milagros Rod DO Primary Care Provider +1- [phone] Allergies Active Allergy Reactions Criticality Noted Date Comments Clopidogrel Itching Medium 12/03/2023 Medications semaglutide 1 mg/dose (2 mg/1.5 mL) pen injectorIndica tions:type 2 diabetes mellitus Inject 1 mg under the skin Once a week Indications: type 2 diabetes mellitus. Active aspirin 81 mg chewable tablet Chew 1 tablet (81 mg total) and swallow in the morning. 30 tablet 2 12/13/19 24 Active FLUoxetine (PROzac) 20 mg capsuleIndicat ions:major depressive disorder Take 1 capsule (20 mg total) by mouth in the morning. Indications: major depressive disorder. Acti ve atorvastatin (LIPITOR) 20 mg tablet Take 1 tablet (20 mg total) by mouth respiratory nightly. Acti ve famotidine (PEPCID) 20 mg tabletIndicati ons:gastroesop hageal reflux disease Take 1 tablet (20 mg total) by mouth in the morning. Indications: gastroesophageal reflux disease. Active acetaminophen (TYLENOL EXTRA STRENGTH) 500 mg tablet Take 1 tablet (500 mg total) by mouth every 6 (six) hours as needed for pain. 30 tablet 04/13/20 24 Active ONETOUCH VERIO TEST STRIPS strip USE TO TEST FASTING BLOOD SUGAR 2 TIMES DAILY 04/22/20 24 Active cyclobenzaprin e (FLEXERIL) 10 mg tablet Take 0.5 tablets (5 mg total) by mouth 2 (two) times a day as needed. 09/12/20 Active lidocaine (LIDODERM) 5 % Place 1 patch on the skin daily. 09/12/20 Active lisinopriL (PRINIVIL,ZEST RIL) 10 mg tablet Take 1 tablet (10 mg total) by mouth in the morning. 08/24/20 24 025 Active naproxen (NAPROSYN) 500 mg tablet Take 1 tablet (500 mg total) by mouth in the morning and 1 tablet (500 mg total) in the evening. Take with meals. 09/12/20 Active Active Problems Problem Noted Date Diagnosed Date Bilateral carotid artery stenosis 09/15/2024 Assessment & Plan (09/15/2024 12:09 PM EST): Carotid duplex ultrasound. Continue aspirin and statin.Smoking cessation. Cigarette smoker 09/15/2024 Assessment & Plan (09/15/2024 12:10 PM EST): Counseled on smoking cessation for at least 3 minutes Sequelae, post-stroke 05/10/2024 Postop check 04/28/2024 Vertebrobasilar artery insufficiency 04/12/2024 Assessment & Plan (09/15/2024 12:09 PM EST): Carotid subclavian bypass graft ultrasound Vertebrobasilar insufficiency 02/18/2024 Assessment & Plan (02/18/2024 9:51 AM EDT): Carotid duplex ultrasound.Left carotid subclavian bypass. Cardiac risk stratification and clearance Lack of coordination as late effect of cerebrovascular accident (CVA) 02/17/2024 Abnormality of gait as late effect of stroke 05/2024 PFO (patent foramen ovale) 02/17/2024 Obstructive sleep apnea 02/17/2024 Type 2 diabetes mellitus wit hout complication, with long-term current use of insulin 02/17/2024 Cigarette smoker 02/04/2024 Assessment & Plan (02/04/2024 10:27 AM EDT): Cigarette smoker I counseled him in length for at least 4 minutes he is willing to quit Claudication 02/04/2024 Assessment & Plan (02/18/2024 9:31 AM EDT): Continue best medical therapy. Walking and follow-up in 6 months Assessment & Plan (02/04/2024 10:28 AM EDT): PVR. Smoking cessation. Continue aspirin and statin. Varicose veins of both lower extremities with pa in 02/04/2024 Assessment & Plan (02/18/2024 9:30 AM EDT): Continue compression therapy and follow-up in 6 months Assessment & Plan (02/04/2024 10:28 AM EDT): We will get venous reflux ultrasound. Will prescribe him compression stockings. ICAO (internal carotid artery occlusion), right 12/03/2023 Immunizations Immunization Administration Dates Next Due Influenza, Injectable, Mdck, Preservative Free, Quad 08/20/2021 Influenza, Injectable, quadrivalent (PF) 023,06/24/2022,07/05/2020 Influenza, Unspecified 07/25/2020 Social History Tobacco Use Types Packs/Day Years Used Date Smoking Tobacco: Every Day Cigarettes 1 41.5 Started: 1983 Passive Smoke Exposure: Past Smokeless Tobacco: Former Chew Tobacco Cessation:Ready to Q uit: Not Asked; Counseling Given: Not Answered Alcohol Use Standard Drinks/Week Comments Not Currently 0 (1 standard drink = 0.6 oz pur e alcohol) [employer] Utilities Answer Date Recorded In the past 12 months has [employer], [employer] [place], or water [employer] threatened to shut off services in your home? No 04/12/2024 AUDIT-C Answer Date Recorded Q1: How often do you have a drink containing alcohol? Never 04/12/2024 Q2: How many drinks containi ng alcohol do you have on a typical day when you are drinking? Patient does not drink Q3: How often do you have si x or more drinks on one occasion? Never 04/12/2024 PHQ-2 Answer Date Recorded Total Score 13 05/10/2024 PRAPARE - Transportation Answer Date Re corded In the past 12 months, has l ack of transportation kept you from medical appointments or from getting medications? No 11/2023 In the past 12 months, has l ack of transportation kept you from meetings, work, or from getting things needed for daily living? No 04/12/2024 Housing Instability Answer Date Recorde d Are you worried or concerned that in the next two months you may not have stable housing that you own, rent or stay in as a part of a household? No 04/12/2024 Hunger Screening Answer Date Recorded Within the past 12 months we worried whether our food would run out before we got money to buy more. Never True 05/10/2024 Within the past 12 months th e food we bought just didn't last and we didn't have money to get more. Never True 05/10/2024 Sex and Gender Information Value Date Recorded Sex Assigned at Not on file Legal Sex Male 10:03 PM EST Gender Identity Not on file Sexual Orientation Not on file Last Filed Vital Signs Vital Sign Reading Time Taken Comments Blood Pressure 156/84 09/15/2024 11:45 AM EST Pulse 71 09/15/2024 11:41 AM EST Temperature 36.7 C (98 F) 09/15/2024 11:41 AM EST Respiratory Rate 16 09/15/2024 11:41 AM EST Oxygen Saturation 98% 09/15/2024 11:41 AM EST Inhaled Oxygen Concentration - - Weight 208 kg (458 lb 8.9 oz) 09/15/2024 11:41 A M EST Height 175.3 cm (5' 9 ) 09/15/2024 11:41 AM EST Body Mass Index 67.72 09/15/2024 11:41 AM EST Plan of Treatment Health Maintenance Due Date Last Done Comments Diabetic Ophthalmology Exam 1965 Adult BMI Follow Up Plan 1982 Diabetic Foot Exam 1982 DTaP,Tdap and Td Vaccines (1 - Tdap) 1983 Zoster (Shingles) Vaccine (1 of 2) 2014 COVID-19 Vaccine (5 - 2023-2 5 season) 2024 09/06/2023, 06/24/2022, 09/14/2021, Additional history exists Depression Screening 05/10/2025 05/10/2024 Tobacco Screening 05/10/2025 05/10/2024 Tobacco Counseling 06/01/2025 12/02/2023 Influenza Vaccine 06/12/2025 09/06/2023, , 08/20/2021, Additional history exists Adult BMI Screening 09/15/2025 09/15/2024 Goals Goal Patient Goal Type Associated Problems Recent Progress Patient-Stated? Author <enter goal here> General Yes Aracelis Crawford LSW Note: Evaluation of progress towards goal: SNF Long-Term Goals General Yes Cassy Zuniga LSW Note: Evaluation of progress towards goal: home/self care with supportive spouse Medical Devices Implanted Type Area Animal Science Professor Device Identifier Shelf Expiration Date Model / Serial / Lot Graft Cv 60cm 7mm Thor [address] [facility] 2 Vlr Clgn Str - [id number] - [id number] Implanted:Qty: 1 on 04/12/2024 by Ronald Gooden MD at [facility] Graft Left: Carotid [employer] 03/11/2028 [id number] / [id number] / [id number] Insurance AET[employer] Advance Directives * Full Code (Latest Code Status on File) Date Activated Date Inactivated Comments 12/03/2023 2:13 AM 12/12/2023 6:49 PM Care Teams Pyridine Recovery Operator Relationship Specialty Start Date End Date Milagros Rod DO PCP - General Family Medicine 12/03/23
--- OUTSIDE RECORDS SUMMARY | 2025-03-27 13:58 | XMS_ITS | Encounter Summary ---
Author Organization [employer] Address [facility]-[id number] [address] [place] [address] Care Team Providers Care Treasury Associate Name Role Phone Milagros Rod DO Primary Care Provider +1- [phone] Encounter Details Date Type Department Care Team (Late st Contact Info) Description 07/20/2024 Telephone [facility] [address] [place] [address] Sonal Coyle CMA Social History Tobacco Use Types Packs/Day Years Used Date Smoking Tobacco: Every Day Cigarettes 1 41.5 Started: 1983 Passive Smoke Exposure: Past Smokeless Tobacco: Former Chew Alcohol Use Standard Drinks/Week Comments Not Currently 0 (1 standard drink = 0.6 oz pur e alcohol) [facility] Utilities Answer Date Recorded In the past 12 months has [employer], gas, oil, or water company threatened to shut off services in your [...] on file documented as of this encounter Plan of Treatment Not on file documented as of this encounter Goals Goal Patient Goal Type Associated Problems Recent Progress Patient-Stated? Author <enter goal here> General Yes Aracelis Crawford LSW Note: Evaluation of progress towards goal: SNF Long-Term Goals General Yes Cassy Zuniga LSW Note: Evaluation of progress towards goal: home/self care with supportive spouse documented as of this encounter Visit Diagnoses Not on filedocumented in this encounter Additional Health Concerns Assessment Noted Time PHQ-9 Depression Total Score: 13 024 9:37 AM EDT documented as of this encounter Care Teams Treasury Associate Relationship Specialty Start Date End Date Milagros Rod DO PCP - General Family Medicine 12/03/23 documented as of this encounter
--- OUTSIDE RECORDS SUMMARY | 2025-03-27 13:58 | XMS_ITS | Encounter Summary ---
Author Organization [employer] Address [facility] [id number] [address] [place] [address] Care Team Providers Care Automotive Internet Sales Manager Name Role Phone Milagros Rod DO Primary Care Provider +1- [phone] Encounter Details Date Type Department Care Team (Late st Contact Info) Description 03/15/2024 Orders Only [facility] [address] [place] [address] Sonal Coyle [facility] Social History Tobacco Use Types Packs/Day Years Used Date Smoking Tobacco: Every Day Cigarettes 1 41.5 Started: 1983 Smokeless Tobacco: Never Alcohol Use Standard Drinks/Week Comments Not Currently 0 (1 standard drink = 0.6 oz pur e alcohol) [facility] Utilities Answer Date Recorded In the past 12 months has e electric, gas, oil, or water company threatened to [...] 12/03/2023 PHQ-2 Answer Date Recorded Total Score 5 02/17/2024 PRAPARE - Transportation Answer Date Re corded [...] got money to buy more. Never True 02/18/2024 Within the past 12 months th e food we bought just didn't last and we didn't have money to get more. Never True 02/18/2024 Sex and Gender Information Value Date Recorded Sex Assigned at Not on file Legal Sex Male 10:03 PM EST Gender Identity Not on file Sexual Orientation Not on file documented as of this encounter Plan of Treatment Not on file documented as of this encounter Goals Goal Patient Goal Type Associated Problems Recent Progress Patient-Stated? Author <enter goal here> General Yes Aracelis Crawford, FUEL CELL DESIGNER Note: Evaluation of progress towards goal: SNF documented as of this encounter Visit Diagnoses Not on filedocumented in this encounter Additional Health Concerns Assessment Noted Time PHQ-9 Depression Total Score: 5 02/17/20 24 9:21 AM EDT documented as of this encounter Care Teams Automotive Internet Sales Manager Relationship Specialty Start Date End Date Milagros Rod DO PCP - General Family Medicine 12/03/23 documented as of this encounter
[2025-03-27 14:44] LABS: Anion Gap 12.7; BUN Creatinine Ratio 17.2; Calcium 9.9 mg/dL (8.5-10.1); Carbon Dioxide 26.2 mmol/L (21.0-32.0); Chloride 104 mmol/L (98-107); Estimated GFR (African America >60 (>=60 mL/min/1.73m^2); Estimated GFR (Non-African Ame >60 (>=60 mL/min/1.73m^2); Glucose 142 mg/dL (74-106); Potassium 3.9 mmol/L (3.5-5.1); Sodium 139 mmol/L (136-145)
== END 2025-03-27 13:52 | disposition home or self-care (01) ==
PROVIDERS: PCP Family Medicine; Visit Provider Internal Medicine Interventional Cardiology
DX: I11.9 Hypertensive heart disease without heart failure (principal)
CPT/HCPCS: 36415; 80048